=== PATIENT | female | born 1930 | race Caucasian/White ===

== ENCOUNTER 2017-09-19 07:30 | Inpatient (IN) ==
[~2017-09-19 07:30] MED LIST: ACETAMINOPHEN 500 MG TABLET PO ONE; DEXAMETHASONE 4 MG/ML INJECTION IVP ONE; FAMOTIDINE PB 20 MG/50 ML BAG IV ONE; LIDOCAINE 1% (10mg/ml) 2mL INJ PF SDV ID ONE; METOCLOPRAMIDE 10mg/2ml INJECTION IVP ONE; ONDANSETRON 4 MG/2 ML INJECTION IVP ONE; VANCOMYCIN 1,250 MG in NS 500ml 500 ML IV ONE
[2017-09-19] MEDS ORDERED: EPINEPHrine PF 0.25 MG, BUPIVACAINE 0.25% PF 30 ML, KETOROLAC INJ 60 MG in NS 30 ML OPSITE ONE (08:00)
--- OUTSIDE RECORDS SUMMARY | 2017-09-19 08:13 | External Medical Summary | Referral Summary ---
:1930 Author Organization [facility] Address [address] [place] [address] Care Team Providers Name Role Phone Geraldine Narvaez Primary Care Physician Encounter VC Date(s): 01/02/17 - 01/02/17 [facility] [address] [place] [address] - us Discharge Diagnosis: Chronic pain of right knee Discharge Disposition: 01-Home or Self Care Attending Physician: Lucas Hutchins PA-C Attending Physician: Provider, Immediate Care Admitting Physician: Provider, Immediate Care Vital Signs Most recent to oldest [Reference Range]: 1 Temperature Oral [35.8-37.3 degC] 36.4 degC (01/02/17 9:45 AM) Peripheral Pulse Rate [60-100 bpm] 71 bpm (01/02/17 9:45 AM) Blood Pressure [90-140/60-90 mmHg] 122/58 mmHg (01/02/17 9:45 AM) SpO2 96 % (01/02/17 9:45 AM) Problem List Condition Effective Dates Status Health Status Informant Acquired spondylolisthesis Active (disorder)(Confirmed) Allergy(Confirmed) Active Anemia(Confirmed) Active Ankle edema(Confirmed) Active Skin cancer of nose(Confirmed) Active Cataracts, bilateral(Confirmed) Active Bladder problem(Confirmed) Active Bronchitis(Confirmed) Active Sleep related hypoxia(Confirmed) Active Spondylosis of cervical Active joint(Confirmed) Chronic anemia(Confirmed) Resolved Chronic kidney disease (CKD), stage Active III (moderate)(Confirmed) Chronic pain syndrome Active (disorder)(Confirmed) Degeneration of cervical Active intervertebral disc (disorder)(Confirmed) Generalized Active osteoarthritis(Confirmed) Diverticulitis(Confirmed) 1972 Resolved Dry eyes(Confirmed) Active GERD (gastroesophageal reflux Active disease)(Confirmed) Glaucoma(Confirmed) Active Goiter(Confirmed) Active H/O chronic bronchitis(Confirmed) Active History of chicken pox(Confirmed) Active History of shingles(Confirmed) Resolved Hearing loss(Confirmed) Active Hyperlipidemia(Confirmed) Active Hypertension(Confirmed) Active Adult onset Active hypothyroidism(Confirmed) IBS (irritable bowel Active syndrome)(Confirmed) IBS (irritable bowel Active syndrome)(Confirmed) Chronic pain of right Active knee(Confirmed) Low back pain(Confirmed) Active Neck pain (finding)(Confirmed) Active BRYNN (obstructive sleep Active apnea)(Confirmed) Osteoporosis(Confirmed) Resolved Pes anserinus bursitis of right Active knee(Confirmed) Post-laminectomy syndrome Active (disorder)(Confirmed) Primary open angle glaucoma Active (disorder)(Confirmed) Lumbar disc herniation(Confirmed) Active RA:40, Anti CCP Negative(Confirmed) Resolved Recurrent sinus Active infections(Confirmed) Rheumatoid lung(Confirmed) Active Scoliosis(Confirmed) Active Seasonal allergies(Confirmed) Active Shoulder joint pain Active (finding)(Confirmed) Snoring(Confirmed) Active Lumbar spinal stenosis(Confirmed) Active Hives(Confirmed) Active Venous stasis ulcer of lower Active extremity(Confirmed) Allergies, Adverse Reactions, Alerts Substance Reaction Severity Status azithromycin Hives Active bacitracin hives Active clindamycin hives Active guaiFENesin hives Active HYDROcodone Active naproxen Hives Active pseudoephedrine hives Active Tape Active Medications 7 day joint smoother/glucosamine/chondroitan 7 day joint smoother/glucosamine/chondroitan, 0 Refill(s) Start Date: 08/12/14 Status: OrderedAdvair Diskus 100 mcg-50 mcg inhalation powder 1 puffs, Inhalation, BID, # 3 Each, 3 Refill(s), Pharmacy: [facility] Start Date: 05/07/15 Status: OrderedamLODIPine 5 mg oral tablet See Instructions, TAKE 2 TABLETS DAILY, # 180 tabs, 2 Refill(s), Pharmacy: [facility], TAKE 2 TABLETS DAILY Start Date: 07/12/16 Status: Orderedbenazepril 20 mg oral tablet See Instructions, TAKE 1 TABLET DAILY, # 90 tabs, 1 Refill(s), eRx: [facility] Start Date: 09/27/16 Status: Orderedcalcium-vitamin D 500 mg-200 intl units oral tablet tabs, Oral, BID, 0 Refill(s) Start Date: 02/07/14 Status: Orderedcarisoprodol Oral, QID, 0 Refill(s) Start Date: 01/02/17 Status: OrderedDuoNeb 0.5 mg-2.5 mg/3 mL inhalation solution See Instructions, INHALE ONE MILLILITER BY MOUTH TWICE A DAY, # 270 unknown unit , 3 Refill(s), eRx: [facility] #[id number], INHALE ONE MILLILITER BY MOUTH TWICE A DAY Start Date: 08/12/14 Status: Orderedfolic acid 1 mg oral tablet See Instructions, TAKE 2 TABLETS TWICE A DAY, # 360 tabs, 3 Refill(s), eRx: [facility] Start Date: 09/12/16 Status: OrderedhydroCHLOROthiazide 25 mg oral tablet 25 mg 1 tabs, Oral, Daily, # 30 tabs, 0 Refill(s), Pharmacy: [facility] # [id number], 1 tabs Oral Daily Start Date: 10/28/16 Status: Orderedleucovorin 5 mg oral tablet See Instructions, 1 tab 24 hrs after Methotrexate dose, # 13 tabs, 0 Refill(s), Pharmacy: [facility] #[id number], 1 tab 24 hrs after Methotrexate dose Start Date: 10/05/16 Status: Orderedlevothyroxine 100 mcg (0.1 mg) oral tablet 100 mcg 1 tabs, Oral, Daily, # 90 tabs, 0 Refill(s), Pharmacy: [facility] #[id number], 1 tabs OralDaily Start Date: 10/28/16 Status: Orderedmagnesium oxide 400 mg (241.3 mg elemental magnesium) oral tablet tabs, Oral, Daily, 0 Refill(s) Start Date: 02/07/14 Status: Orderedmethotrexate 2.5 mg oral tablet See Instructions, TAKE 6 TABLETS EVERY WEEK ON MONDAY, # 78 tabs, eRx: [facility] Start Date: 11/15/16 Status: OrderedMiscellaneous DME DME Item Front-wheeled walker Lifetime Fax to [facility] , See Instructions, # 1 Each, 0 Refill(s), Supply Start Date: 09/08/16 Status: Orderedmultivitamin Daily, 0 Refill(s) Start Date: 02/07/14 Status: Orderedomega-3 polyunsaturated fatty acids oral capsule 1 caps, Oral, QID, # 100 caps, 0 Refill(s) Start Date: 02/07/14 Status: Orderedomeprazole 40 mg oral delayed release capsule See Instructions, TAKE 1 CAPSULE BY MOUTH EVERY DAY BEFORE A MEAL, # 90 caps, eRx: [facility], TAKE 1 CAPSULE BY MOUTH EVERY DAY BEFORE A MEAL Start Date: 12/26/16 Status: OrderedOMEPRAZOLE CAPS 40MG See Instructions, TAKE 1 CAPSULE BY MOUTH EVERY DAY BEFORE A MEAL, # 90 caps, eRx: [facility], TAKE 1 CAPSULE BY MOUTH EVERY DAY BEFORE A MEAL Start Date: 09/27/16 Status: OrderedOMEPRAZOLE CAPS 40MG See Instructions, TAKE 1 CAPSULE BY MOUTH EVERY DAY BEFORE A MEAL, # 90 caps, eRx: [facility], TAKE 1 CAPSULE BY MOUTH EVERY DAY BEFORE A MEAL Start Date: 07/01/16 Status: OrderedProventil HFA 90 mcg/inh inhalation aerosol See Instructions, INHALE 2 PUFF BY INHALATION ROUTE EVERY 4 TO 6 HOURS NEEDED , # 6.7 unknown unit, 5 Refill(s), eRx: [facility] #[id number], INHALE 2 PUFF BY INHALATION ROUTE EVERY 4 TO 6 HOURS ASNEEDED Start Date: 12/12/14 Status: OrderedRefresh drops, Eye-Both, BID, 0 Refill(s) Start Date: 02/07/14 Status: OrderedSoma 250 mg oral tablet 250 mg 1 tabs, Oral, TID, as needed for pain, # 30 tabs, 0 Refill(s) Start Date: 04/06/16 Status: OrderedTimoptic Ocudose 0.25% ophthalmic solution 1 drops, Eye-Both, BID, # 5 mL, 1 Refill(s), Pharmacy: [facility] Start Date: 09/08/16 Status: OrderedtraMADol 50 mg oral tablet 50 mg 1 tabs, Oral, q4hr, as needed for pain, # 15 tabs, 0 Refill(s) Start Date: 01/02/17 Status: OrderedTylenol Caplet 325 mg oral tablet 2 tabs, Oral, q4hr, 0 Refill(s) Start Date: 02/07/14 Status: OrderedVitamin D3 2000 intl units oral tablet tabs, Oral, Daily, 0 Refill(s) Start Date: 02/07/14 Status: OrderedVoltaren 1% topical gel See Instructions, APPLY 2 GRAMS TOPICALLY TO THE AFFECTED AREA(S) FOUR TIMES A DAY, # 300 g, 4 Refill(s), eRx: [facility], APPLY 2 GRAMS TOPICALLY TO THE AFFECTED AREA(S) FOUR TIMES A DAY Start Date: 12/30/15 Status: Ordered Results No data available for this section Immunizations Given and Recorded Vaccine Date Status Refusal Reason tetanus/diphth/pertuss (Tdap) adult/adol 10/16/09 Recorded influenza virus vaccine, inactivated 04/07/16 Given influenza virus vaccine, inactivated 05/25/15 Given influenza virus vaccine, inactivated1 05/06/14 Recorded influenza virus vaccine, live 03/21/13 Given influenza virus vaccine, live 04/04/12 Given pneumococcal 13-valent conjugate vaccine 03/04/15 Given pneumococcal 23-polyvalent vaccine 03/27/07 Recorded pneumococcal 23-polyvalent vaccine 04/22/96 Recorded 1Result Comment: [05/06/2014] see scanned document Procedures Procedure Date Related Diagnosis Body Site Bone densimetry normal 09/24/14 Knee replacement 2012 Mammogram 07/28/09 Angioplasty of anterior tibial artery1 2009 Angioplasty of anterior tibial artery2 2009 Knee replacement3 2008 Vaginal Pap smear 04/30/08 Knee replacement4 2005 Colonoscopy 01/13/03 Cataract extraction5 2000 Arthroscopy of knee6 1999 Cataract extraction7 1999 History of back surgery 1999 Status post hardware removal8 1994 Decompression of lumbar spine9 1991 Varicose vein stripping 1961 Procedure on thyroid gland10 1960 Rndsotbnutosbrr88 1957 H/O [id number] 1951 Arthrotomy of elbow13 Biopsy of skin14 Blood transfusion Opggbyuwfkyl23 Dilation and curettage Hx of tubal ligation [id number] jeri [id number] [id number] [id number] foot Social History Social History Type Response Smoking Status Never smoker Assessment and Plan Extracted from: Title: Office Visit Note Author: Lucas Hutchins PA-C Date: 01/02/17 Assessment/Plan 1.Chronic pain of right knee No evidence of DVT or cellulitis. Pt given rx for Tramadol, advised to RICE right knee, provided with an ELIECER wrap. Pt has an ortho appt in x4 days. Diagnosis and treatment discussed. Patient advise d to follow up with ortho in 4 days as scheduled. If symptoms worsen at any time, patient will go to the nearest ER for further evaluation. Patient stable upon discharge, alert and orientated with no ap parent distress, and indicated understanding of discharge instructions. Ordered: Office Visit Level 3 Est [id number]
[2017-09-19 08:27] VITALS: BMI 34.9
[2017-09-19] MEDS: NS 1,000 ML IV SCH ×3 (08:47→13:41)
[2017-09-19] MEDS: NOZIN NASAL SWAB NAS SCH ×4 (08:48→21:34)
--- NOTE | 2017-09-19 10:01 | Anesthesia Preoperative Report ---
Anesthesia Preoperative Record - Date and Time Date: 09/19/17 Preoperative Diagnosis: Rt EMMY M16.11 Proposed Procedure: Right EMMY Allergies/Adverse Reactions: Allergies Allergy/AdvReac Type Severity Reaction Status Date / Time adhesive tape Allergy Unknown Verified 09/19/17 08:26 azithromycin Allergy Unknown Hives Verified 09/19/17 08:26 bacitracin Allergy Unknown Hives Verified 09/19/17 08:26 clindamycin Allergy Unknown Hives Verified 09/19/17 08:26 guaifenesin Allergy Unknown Verified 09/19/17 08:26 hydrocodone Allergy Unknown Verified 09/19/17 08:26 morphine Allergy Unknown hallucinati Verified 09/19/17 08:26 ons naproxen Allergy Unknown Hives Verified 09/19/17 08:26 phenylephrine Allergy Unknown Hives Verified 09/19/17 08:26 [From AQUATAB D] phenylpropanolamine Allergy Unknown Verified 09/19/17 08:26 pseudoephedrine Allergy Unknown Verified 09/19/17 08:26 cyclobenzaprine AdvReac Intermediate SLURRED Verified 09/19/17 08:26 SPEECH TAPE Allergy Unknown Hives Uncoded 09/19/17 08:26 - Vital Signs Vital Signs: Temperature 97.7 F 09/19/17 08:26 Pulse Rate 70 09/19/17 08:28 Respiratory Rate 14 09/19/17 08:26 Blood Pressure 113/87 09/19/17 08:26 Pulse Oximetry 96 09/19/17 08:26 Height and Weight: Height 5 ft Weight 81.1 kg Body Mass Index 34.9 - Medications Inpatient Medications: Current Medications Sodium Chloride (Normal Saline) 1,000 mls @ 50 mls/hr IV .Q20H [facility] Last Admin: 09/19/17 08:47 Dose: 50 mls/hr Epinephrine HCl 0.25 mg/Bupivacaine HCl 30 ml/Ketorolac Tromethamine 60 mg/ Sodium Chloride 62.25 mls @ 1 mls/hr OPSITE INTRAOP ONE PRN Reason: Protocol Stop: 09/21/17 22:14 Isopropyl Alcohol (Nozin Nasal Swab) 1 each DANIEL Q1M RADHA Stop: 09/19/17 12:03 Last Admin: 09/19/17 08:49 Dose: 1 each Sodium Chloride (Iv Flush) 10 - 80 ml IV PRN PRN PRN Reason: Flushing Tranexamic Acid (Cyklokapron) 1,000 mg TOP INTRAOP ONE Stop: 09/19/17 11:53 Home Medications: Home Medications Medication Instructions Recorded Confirmed Type hydroCHLOROthiazide 25 mg PO DAILY #0 12/20/09 09/19/17 History [Hydrochlorothiazide] Omeprazole 40 mg PO DAILY #0 05/24/12 09/19/17 History Calcium Carbonate/Vitamin D3 2 tab PO DAILY #0 11/26/15 09/19/17 History [Calcium 600-Vit D3 200 Tablet] Levothyroxine Sodium 112 mcg PO ACB #0 11/26/15 09/19/17 History Timolol Maleate/Pf [Timoptic 0.5% 1 drop BOTH EYES BID #0 11/26/15 09/19/17 History Ocudose Drop] metHOTREXate sodium [Trexall] 45 mg PO WEEKLY #0 11/26/15 09/19/17 History Acetaminophen [Tylenol] 1,000 mg PO Q4-6HPRN PRN 08/16/17 08/28/17 History Amlodipine Besylate [Norvasc] 10 mg PO DAILY 08/16/17 09/19/17 History Benazepril [Lotensin] 20 mg PO DAILY 08/16/17 09/19/17 History Cholecalciferol (Vitamin D3) 2,000 unit PO DAILY 08/16/17 09/19/17 History [Vitamin D3] Diclofenac [Voltaren] 2 gm TP QID PRN 08/16/17 09/19/17 History Folic Acid [Folate] 2 mg PO BID 08/16/17 09/19/17 History Glucosamine/MSM/Chondroitin A 2 each PO DAILY 08/16/17 09/19/17 History [Triple Flex Caplet] Magnesium Oxide [Magnesium] 400 mg PO DAILY 08/16/17 09/19/17 History Multivit/Folic Acid/Vit K1 1 tab PO DAILY 08/16/17 09/19/17 History [One-A-Day Women's 50 Plus Tab] [place]-3 Fatty Acids [[place]-3] 2,000 mg PO DAILY 08/16/17 09/19/17 History Tramadol [Ultram] 50 mg PO Q6HR PRN 08/16/17 08/28/17 History cycloSPORINE [Restasis Multidose] 1 drops EACH EYE BID 08/16/17 09/19/17 History ergocalciferol (vitamin D2) 50,000 50,000 unit PO DAILY #2 cap 08/17/17 Rx unit capsule Is Patient on Beta Manolo?: No - Medical History Respiratory: Reports: Bronchitis (h/o), Pneumonia (about 2 years ago), Sleep Apnea (uses cpap), 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), Other ('rheumatoid lung' per h&p) DENIES: Asthma, Chronic Obstructive Pulmonary Disease (COPD), Dyspnea, Orthopnea, Pulmonary Embolism, Upper Respiratory Infection, Pulmonary Edema Cardiovascular: Reports: Hypertension DENIES: Abnormal EKG, Angina, Arrhythmia, Congestive Heart Failure, Coronary Artery Disease, Heart Murmur, Hypotension, High Cholesterol, Myocardial Infarction, Rheumatic Fever, Valvular Heart Disease, Other Gastrointestional: Reports: Gastroesophageal Reflux Disease, Other (hx diverticulitis) DENIES: Obstructive Bowel, Hepatitis, Cirrhosis, Nausea or Vomiting Present, Gastrointestinal Bleeding, Hiatal Hernia, Ulcer, Morbid Obesity Neuro/Musculoskeletal: Reports: HX.MS.OSAR, Back Problems (acquired spondylolithiasis; spinal stenosis; cervical spondylolithiasis), Depression ( hip pain is making her depressed), Other (osteoporosis; RA) Denies: Cerebrovascular Accident, Headaches, Loss of Consciousness, Muscle Weakness, Neuromuscular Disorder, Paralysis, Paresthesia, Syncope, Seizures Renal/Endocrine: Reports: Thyroid Disease (adult onset hypothyroidism) DENIES: Diabetes Mellitus Type 1, Diabetes Mellitus Type 2, Renal Failure, Dialysis, Weight Loss, Weight Gain, Other Other History: Reports: Anesthesia Reactions (hard to wake up), Blood Transfusions (no known reactions), Cancer (skin CA's on face removed) DENIES: Now, Chemotherapy, Hemophilia, Malignant Hyperthermia, Sickle Cell Disease, Other - Surgical History HEENT Surgeries: Reports: Eye Surgery (case cataract ext with IOL) Cardiac Surgeries/Treatments: Reports: Angiogram (angioplasty of anterior tibial artery x2), Other (varicose vein stripping 1961) Respiratory Surgery/Treatments: Reports: CPAP Use Endocrine Surgery/Treatments: Reports: Other (goiter surgery x3-? thyroidectomy) GI Surgery/Treatments: Reports: Appendectomy, Cholecystectomy, Colonoscopy Musculoskeletal Surgery/Tx: Reports: Carpal Tunnel Release (left), Knee Arthroscopy, Orthopedic Surgery (case bunionectomy; elbow surgery; hammer toe surgery), Total Knee Replacement (left and right TKA's), Other (lumbar fusion; lower back surgery w/ hardware; hardware removed) Reproductive Surgery/Treatment: Reports: Tubal Ligation Anesthesia Reactions: None - Social History Smoking Status: Never smoker Hx Chewing Tobacco Use: No Second Hand Exposure: No Substance Use Type: does not use Alcohol Intake: never Alcohol Intake Frequency: does not drink - Pertinent Findings Laboratory: CBC and BMP 09/19/17 08:37 09/19/17 08:37 BMP 09/19/17 08:37 Sodium 142 Potassium 4.2 Chloride 106 Carbon Dioxide 26 BUN 41.0 H Creatinine 0.9 Glucose 105 Calcium 9.6 Liver Function 09/19/17 Range/Units 08:37 Total Bilirubin 0.30 (0.20-1.30) MG/DL AST 28 (14-36) U/L ALT 22 (1-35) U/L Alkaline Phosphatase 46 (38-126) U/L Albumin 4.0 (3.5-5.0) g/dL EKG: Sinus Rhythm - Physical Exam Respiratory Exam: Present: lungs clear, bilateral breath sounds equal Cardiovascular Exam: Present: regular rate and rhythm, no murmur - Airway Assessment Mallampati Score: II TMD: 3 Fingerbreadths Neck Extension: poor Overall Assessment: may be difficult intubation - ASA ASA Score: 3 - Plan Anesthesia: General TIVA Regional/Trunk Block: Spinal - Discussion Discussion: Discussed risks/options/alternatives of anesthesia and questions answered. Patient consents. Nursing pain assessment noted. Attestation Statement: Prior to the delivery of any anesthetic medication, I examined the patient, developed the plan, obtained the patient's consent and discussed the risk and benefits of the procedure with the patient/guardian. - Additional Information Seen by Anesthesia: Yes
[2017-09-19] MEDS ORDERED: ANESTHESIA MIXTURE 50 ML IV ONE (10:15)
[2017-09-19] MEDS ORDERED: FentaNYL 250 MCG/5 ML INJECTION ONE (10:28)
[2017-09-19] MEDS ORDERED: MIDAZOLAM 2mg/2ml INJECTION ONE (10:28)
[2017-09-19] MEDS ORDERED: LIDOCAINE 2% (100mg/5mL) 5ml PF SDV ONE (10:28)
[2017-09-19] MEDS ORDERED: BUPIVACAINE 0.5% (5mg/ml) PF 30ml INJ SDV ONE (10:28)
[2017-09-19] MEDS ORDERED: VANCOMYCIN 1,000 MG INJECTION ONE (10:36)
[2017-09-19] MEDS ORDERED: EPHEDRINE 50mg/ml INJECTION ONE (11:11)
[2017-09-19] MEDS ORDERED: SALINE FLUSH 10ml SYRINGE ONE (11:13)
[2017-09-19] MEDS ORDERED: VANCOMYCIN 1,000 MG INJECTION IAR ONE (11:15)
[2017-09-19] MEDS ORDERED: TRANEXAMIC ACID 1,000 MG/10 ML VIAL TOP ONE (11:52)
[2017-09-19] MEDS ORDERED: SALINE FLUSH 10ml SYRINGE IV PRN (11:52)
[2017-09-19] MEDS ORDERED: ONDANSETRON 4 MG/2 ML INJECTION IVP PRN (12:20)
[2017-09-19] MEDS ORDERED: VANCOMYCIN 1,250 MG in NS 500ml 500 ML IV ONE (12:20)
[2017-09-19] MEDS ORDERED: NOZIN NASAL SWAB NAS ONE (12:20)
[2017-09-19] MEDS ORDERED: DiphenhydrAMINE 50 MG/ML INJECTION IVP PRN (12:20)
[2017-09-19] MEDS ORDERED: DiphenhydrAMINE 25 MG CAPSULE PO PRN (12:20)
[2017-09-19] MEDS ORDERED: LORazepam 1 MG TABLET PO PRN (12:20)
--- NOTE | 2017-09-19 12:27 | Operative Note ---
- Procedure Preoperative Diagnosis: Right hip primary degenerative joint disease Postoperative Diagnosis: Same as preoperative diagnosis. Surgeon: Ray Bridges MD Electrical Journeyman: Melvin Manley Complications: Intraoperative periprosthetic fracture Anesthesia: Spinal. Estimated Blood Loss: See Anesthesia Record. Fluids: Please see Anesthesia Record. Description of Procedure: Mrs. Pyle and her right hip were identified and marked in the preoperative holding area. She was brought back to the operating suite and spinal anesthetic was administered. She was then placed in a lateral decubitus position with her right hip up. The right lower extremity was prepped and draped in my normal sterile fashion. Timeout was performed. She had severe valgus deformity to both femoral necks. Revision components were available if needed. The [employer] robotic arm was used to assist with the surgery. A pelvic array was placed into the iliac crest through three small incisions. A posterior approach was utilized. An approximately 15cm incision was made in the skin and dissection carried down to the muscle fascia which was then split in line with skin incision. The short external rotators were identified and tagged and detached. A capsulotomy was performed and the hip dislocated. A femoral neck osteotomy was performed at the pre-templated level measuring down from the femoral head. The head was removed and acetabulum exposed. Labrum was removed. The acetabulum was then registered with the robot. The robotic arm was then used to ream with a 47 reamer. The robot then was again used to place a 48 Trident cup in 40 of tilt and 25 of anteversion. A liner was then placed. The proximal femur was exposed and prepared with a cookie cutter followed by reaming and broaching to a size 3. We trialed with a -5 head. This gave her very good stability she was not too tight in extension and she was just 3 mm longer than her opposite hip according to the robot. Because of her severe valgus neck and therefore high risk of prosthetic fracture I decided to place a cable proximally at the femoral neck. This was passed and then tightened. It was left uncrimped. After thorough irrigation a final Accolade 2 size 3 stem with 132 neck was placed. While impacting the stem and fracture occurred to the medial calcar. Again because a cable was replaced there was no displacement. I was able to feel with my finger how far the fracture propagated but did not feel like there is any displacement distally. I then decided place a second cable distal to the lesser trochanter and this was done. Both cables were tightened and crimped. I did bring in digital x-ray to ensure there was no displacement of the fracture site and at the cables had good placement. Leg length and offset were checked with the robot and were good with a -5 head. Then placed the final A final -5 metal 36 mm head was placed and the hip reduced. Betadine solution was used to irrigate throughout the case. It was followed by normal saline irrigation. Joint cocktail was injected throughout soft tissue. The capsulotomy was repaired with Ethibond. Short external rotators were also repaired with Ethibond. 1 g of vancomycin powder was placed into the wound. The muscle fascia was then repaired with #1 Vicryl. I then left my assistant athletic trainer to close the subcutaneous tissue with 2-0 Vicryl followed by running 4-0 Monocryl skin followed by Dermabond and a sterile dressing. The patient with any placed back into supine position and taken to recovery room in the care of anesthesia.
--- NOTE | 2017-09-19 13:11 | XRay Report ---
Indication: INTRA OP PROCEDURE: XR pelvis 1-2V: Encounter: Initial Comparison: September 19, 2017 Findings/ Impression: Intraoperative view of the pelvis shows a right total hip prosthesis in a stage of placement. Two cerclage wires are noted in the proximal femur with expected postoperative subcutaneous gas. Three threaded screws are seen projecting over the right iliac bone with a metallic bar projecting over the central pelvis. No radiopaque sponges identified. .
--- NOTE | 2017-09-19 13:29 | Anesthesia Postoperative Note ---
- Date and Time Date: 09/19/17 Time: 13:28 - Status Patient Participated in Evaluation: Patient Participated in Person Vital Signs: Temperature 96.8 F 09/19/17 13:24 Pulse Rate 71 09/19/17 13:20 Respiratory Rate 18 09/19/17 13:20 Blood Pressure 124/61 09/19/17 13:20 Pulse Oximetry 94 09/19/17 13:20 Respiratory Function: Airway Patent, Regular Respirations Cardiovascular Function: Regular Pulse EKG: Sinus Rhythm Mental Status: Alert and Oriented Pain Intensity: 0 Hydration: IV Infusing Complications During Recover: None Apparent - Follow-Up Instructions Instructions: Per Surgeon
--- NOTE | 2017-09-19 13:37 | XRay Report ---
Indication: postoperative image PROCEDURE: XR pelvis w/ 1 view RT hip: Encounter: Initial Comparison: December 20, 2009 Findings: Postoperative changes of right total hip replacement are seen. There is expected postoperative subcutaneous gas. No evidence of hardware failure or acute fracture. No retained radiopaque surgical instruments or sponges seen. Two cerclage wires in the femur. Impression: New right total hip prosthesis without evidence of immediate complication. .
[2017-09-19] MEDS: ACETAMINOPHEN 325 MG TABLET PO SCH ×3 (13:45→21:33)
[2017-09-19] MEDS ORDERED: FALL RISK - PHARMACY CONSULT XX ONE (14:20)
[2017-09-19] MEDS: TRAMADOL 50 MG TABLET PO PRN (17:19)
[2017-09-19] MEDS ORDERED: NS IV ONE (20:00)
[2017-09-19] MEDS ORDERED: VANCOMYCIN IV ONE (20:00)
[2017-09-19] MEDS: ASPIRIN *EC* 81 MG TABLET PO SCH (21:33)
[2017-09-19] MEDS: TIMOLOL 0.5% EYE DROPS 5 ML EACH EYE SCH (21:33)
[2017-09-19] MEDS: SENNOSIDES 8.6 MG TABLET PO SCH (21:33)
[2017-09-19] MEDS: DOCUSATE SODIUM 100 MG CAPSULE PO SCH (21:34)
[2017-09-20] MEDS: NS 1,000 ML IV SCH (02:48)
[2017-09-20] MEDS: LEVOTHYROXINE 112 MCG TABLET PO SCH (06:08)
[2017-09-20] MEDS: OMEPRAZOLE 20 MG CAPSULE PO SCH (06:08)
[2017-09-20] MEDS: NOZIN NASAL SWAB NAS SCH ×4 (06:08→21:34)
--- NOTE | 2017-09-20 09:01 | Orthopedic Progress Note ---
Date: Date: 09/20/17 Time: 857 Subjective/Severity of Illness: Pt is doing okay this AM. Moderate pain but well tolerated. No CP, cough or SOA. She has been ambulatory with good tolerance. Hgb dropped from 10.7 to 7.8 but she is not symptomatic with this. She has not had much of an appetite but feels a little better this AM. No other concerns or problems at this time. Orthopedic Exam Vital signs: Temperature 96.5 F L 09/20/17 07:07 Pulse Rate 83 09/20/17 07:07 Respiratory Rate 16 09/20/17 07:07 Blood Pressure 138/62 09/20/17 07:07 Pulse Oximetry 99 09/20/17 07:07 - Constitutional General Appearance: Present: alert, cooperative, no acute distress, well developed, well nourished - Respiratory Exam Present: CTA bilaterally, non-labored - Cardiovascular Exam Present: Regular Rate/Rhythm, pedal pulses intact - Abdominal Exam Present: soft. Absent: tenderness, distended - Extremities Exam Present: pulses intact. Absent: calf tenderness - Dressing Dressing: dry, intact, no drainage, other (Erythema noted around the dressing. Dressing is dry.) - Integumentary Exam Present: pink, warm, dry - Neurological Exam Present: no deficits - Psychiatric Exam Present: alert, normal affect - Labs Result Diagrams: 09/20/17 04:03 09/20/17 04:03 Abnormal lab results 09/20/17 09/20/17 Range/Units 04:03 04:03 Hgb 7.8 L D (12-16) GM/DL Hct 23.5 L D (36-46) % Chloride 110 H (98-107) MEQ/L BUN 31.0 H (7-17) MG/DL BUN/Creatinine Ratio 34 H (6-26) RATIO H & H 09/19/17 09/20/17 Range/Units 08:37 04:03 Hgb 10.7 L 7.8 L D (12-16) GM/DL Hct 32.4 L 23.5 L D (36-46) % Orthopedic Assessment and Plan (1) Primary osteoarthritis of right hip Status: Acute Assessment and Plan: Current anti-coagulation protocol for VTE prophylaxis. SCD's for added coverage. PT/OT services to improve independent function. Recheck labs at noon. Discharge Planning per Case Management. (2) CKD (chronic kidney disease) Status: Acute Qualifiers: Chronic kidney disease stage: stage 3 (moderate) Qualified Code(s): N18.3 - Chronic kidney disease, stage 3 (moderate) Assessment and Plan: Currently stable with GFR 59 and creat stable. Diastolic pressures 50-60. Will monitor closely. Check hgb at noon to watch trends. No transfusion at this time unless symptomatic when up with PT. - Anticoagulation Therapy Anticoagulation: ASA 81 mg PO BID x6 weeks Hospital Course Summary Disclaimer: The visit summary below is not to be considered part of the above Progress Note.
[2017-09-20] MEDS: ACETAMINOPHEN 325 MG TABLET PO SCH ×4 (09:59→20:24)
[2017-09-20] MEDS: ASPIRIN *EC* 81 MG TABLET PO SCH ×2 (09:59→20:23)
[2017-09-20] MEDS: BENAZEPRIL 20 MG TABLET PO SCH (10:00)
[2017-09-20] MEDS: POLYETHYL GLYCOL 3350 17gm PACKET PO SCH (10:00)
[2017-09-20] MEDS: TIMOLOL 0.5% EYE DROPS 5 ML EACH EYE SCH ×2 (10:00→20:25)
[2017-09-20] MEDS: AMLODIPINE 10 MG TABLET PO SCH (10:00)
[2017-09-20] MEDS: DOCUSATE SODIUM 100 MG CAPSULE PO SCH ×2 (10:00→20:23)
[2017-09-20] MEDS: TRAMADOL 50 MG TABLET PO PRN ×2 (10:06→18:06)
[2017-09-20] MEDS ORDERED: SENNOSIDES 8.6 MG TABLET PO PRN (12:20)
[2017-09-20] MEDS ORDERED: NS FLUSH BAG 500ml IV PRN (12:36)
[2017-09-20] MEDS ORDERED: PNEUMOCOCCAL VAC ADMIN CHARGE INJ ONE (14:00)
[2017-09-20] MEDS ORDERED: PNEUMOCOCCAL 23 VACCINE 0.5ml INJECTION IM ONE (14:30)
[2017-09-20] MEDS ORDERED: FUROSEMIDE 20 MG/2 ML INJECTION IVP ONE (17:00)
[2017-09-20] MEDS: SENNOSIDES 8.6 MG TABLET PO SCH (20:23)
[2017-09-21] MEDS: NOZIN NASAL SWAB NAS SCH ×5 (05:45→21:01)
[2017-09-21] MEDS: LEVOTHYROXINE 112 MCG TABLET PO SCH (05:45)
[2017-09-21] MEDS: OMEPRAZOLE 20 MG CAPSULE PO SCH (05:45)
[2017-09-21] MEDS: BENAZEPRIL 20 MG TABLET PO SCH (08:46)
[2017-09-21] MEDS: ASPIRIN *EC* 81 MG TABLET PO SCH ×2 (08:46→20:34)
[2017-09-21] MEDS: POLYETHYL GLYCOL 3350 17gm PACKET PO SCH (08:46)
[2017-09-21] MEDS: ACETAMINOPHEN 325 MG TABLET PO SCH ×4 (08:46→20:34)
[2017-09-21] MEDS: TRAMADOL 50 MG TABLET PO PRN ×2 (08:47→14:56)
[2017-09-21] MEDS: AMLODIPINE 10 MG TABLET PO SCH (08:47)
[2017-09-21] MEDS: DOCUSATE SODIUM 100 MG CAPSULE PO SCH ×2 (08:47→20:34)
[2017-09-21] MEDS: TIMOLOL 0.5% EYE DROPS 5 ML EACH EYE SCH ×2 (08:48→20:34)
--- NOTE | 2017-09-21 09:01 | Orthopedic Progress Note ---
Date: Date: 09/21/17 Time: 856 Subjective/Severity of Illness: Kassandra is lying in her bed this morning when I visit. She did well overnight with pain control. Was up ambulating this morning and states she felt stiff. Yesterday Hgb 7.4, she was transfused with 2 units PRBC. Hgb improved to 10.8 this morning. Denies any further dizziness. No chest pain, shortness of breathe, or nausea. Orthopedic Exam Vital signs: Temperature 96.5 F L 09/20/17 07:07 Pulse Rate 83 09/20/17 07:07 Respiratory Rate 16 09/20/17 07:07 Blood Pressure 138/62 09/20/17 07:07 Pulse Oximetry 99 09/20/17 07:07 - Constitutional General Appearance: Present: alert, cooperative, no acute distress, well developed, well nourished - Respiratory Exam Present: non-labored - Cardiovascular Exam Present: pedal pulses intact - Extremities Exam Present: pulses intact. Absent: calf tenderness - Dressing Dressing: dry, intact, other (bruising noted around surgical site. Bloody drainage present centrally on dressing, stable from yesterday. ) - Integumentary Exam Present: pink, warm, dry - Neurological Exam Present: intact to light touch, no deficits - Psychiatric Exam Present: alert, normal affect - Labs Result Diagrams: 09/21/17 03:52 09/21/17 03:52 Abnormal lab results 09/20/17 09/20/17 09/20/17 Range/Units 11:37 12:51 21:37 RBC 2.13 L (4.00-5.20) M/MM3 Hgb 7.4 L 11.2 L D (12-16) GM/DL Hct 22.7 L (36-46) % MCV 106.6 H (80-100) UM3 MCH 347.0 H (26-34) UUG RDW Std Deviation 51.4 H (36.9-50.2) FL BUN (7-17) MG/DL BUN/Creatinine Ratio (6-26) RATIO Crossmatch (AHG) See Detail 09/21/17 09/21/17 Range/Units 03:52 03:52 RBC (4.00-5.20) M/MM3 Hgb 10.8 L (12-16) GM/DL Hct 31.8 L D (36-46) % MCV (80-100) UM3 MCH (26-34) UUG RDW Std Deviation (36.9-50.2) FL BUN 27.0 H (7-17) MG/DL BUN/Creatinine Ratio 27 H (6-26) RATIO Crossmatch (AHG) H & H 09/19/17 09/20/17 09/20/17 Range/Units 08:37 04:03 11:37 Hgb 10.7 L 7.8 L D 7.4 L (12-16) GM/DL Hct 32.4 L 23.5 L D 22.7 L (36-46) % 09/20/17 09/21/17 Range/Units 21:37 03:52 Hgb 11.2 L D 10.8 L (12-16) GM/DL Hct 31.8 L D (36-46) % Orthopedic Assessment and Plan (1) CKD (chronic kidney disease) Status: Acute Qualifiers: Chronic kidney disease stage: stage 3 (moderate) Qualified Code(s): N18.3 - Chronic kidney disease, stage 3 (moderate) Assessment and Plan: 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 SCD's for added coverage. PT/OT services to improve independent function. Hgb improved this morning at 10.8. Patient asymptomatic. Bruising along right hip surgical incision stable, drainage unchanged on dressing. Will continue to monitor closely. Patient has been accepted to IRU, plan transfer Monday. Discharge Planning per Case Management. When revisiting patient with Dr. Bridges this afternoon, patient reports increased pain with ambulation. Will obtain xrays of right hip. - Anticoagulation Therapy Anticoagulation: ASA 81 mg PO BID x6 weeks Hospital Course Summary Disclaimer: The visit summary below is not to be considered part of the above Progress Note.
--- NOTE | 2017-09-21 15:55 | XRay Report ---
Indication: INCREASE IN PAIN PROCEDURE: XR pelvis w/ 2 view RT hip: Encounter: Initial Comparison: September 19, 2017 Findings: There is no acute fracture, dislocation or malalignment identified. Hip prosthesis is stable in appearance. Impression: No acute osseous abnormality. .
[2017-09-21] MEDS ORDERED: BISACODYL 10 MG SUPPOSITORY RECTALLY SCH (20:00)
[2017-09-21] MEDS: SENNOSIDES 8.6 MG TABLET PO SCH (20:34)
[2017-09-22] MEDS: TRAMADOL 50 MG TABLET PO PRN ×2 (05:07→11:31)
[2017-09-22] MEDS: NOZIN NASAL SWAB NAS SCH (05:07)
[2017-09-22] MEDS: OMEPRAZOLE 20 MG CAPSULE PO SCH (05:32)
[2017-09-22] MEDS: LEVOTHYROXINE 112 MCG TABLET PO SCH (05:32)
[2017-09-22] MEDS: DOCUSATE SODIUM 100 MG CAPSULE PO SCH (08:52)
[2017-09-22] MEDS: BENAZEPRIL 20 MG TABLET PO SCH (08:52)
[2017-09-22] MEDS: ASPIRIN *EC* 81 MG TABLET PO SCH (08:52)
[2017-09-22] MEDS: ACETAMINOPHEN 325 MG TABLET PO SCH (08:52)
[2017-09-22] MEDS: TIMOLOL 0.5% EYE DROPS 5 ML EACH EYE SCH (08:52)
[2017-09-22] MEDS: POLYETHYL GLYCOL 3350 17gm PACKET PO SCH (08:52)
[2017-09-22] MEDS: AMLODIPINE 10 MG TABLET PO SCH (08:52)
--- NOTE | 2017-09-22 09:22 | Orthopedic Progress Note ---
Date: Date: 09/22/17 Time: 917 Subjective/Severity of Illness: Kassandra is sitting up in her chair this morning when I visit. She states she continues to have pain in her quad when ambulating. Has been controlled with pain medication. States she was declining pain medications with concerns of constipation. Discussed pain med and bowel promotion medication regimens. To take pain medications as need so able to perform therapy. Denies any other concerns, CP, SOA, dizziness, nausea. Tolerating PO well. Hgb remains stable this morning at 11.5. Orthopedic Exam Vital signs: Temperature 96.5 F L 09/20/17 07:07 Pulse Rate 83 09/20/17 07:07 Respiratory Rate 16 09/20/17 07:07 Blood Pressure 138/62 09/20/17 07:07 Pulse Oximetry 99 09/20/17 07:07 - Constitutional General Appearance: Present: alert, cooperative, no acute distress, well developed, well nourished - Respiratory Exam Present: CTA bilaterally, non-labored - Cardiovascular Exam Present: Regular Rate/Rhythm, pedal pulses intact - Extremities Exam Present: pulses intact. Absent: calf tenderness - Dressing Dressing: dry, intact, bloody drainage, other (bruising noted around surgical site. Bloody drainage present centrally on right hip mepilex dressing, stable from yesterday. ) - Integumentary Exam Present: pink, warm, dry - Neurological Exam Present: intact to light touch, no deficits - Psychiatric Exam Present: alert, normal affect - Labs Result Diagrams: 09/22/17 07:35 09/22/17 07:35 Abnormal lab results 09/22/17 09/22/17 Range/Units 07:35 07:35 Hgb 11.5 L (12-16) GM/DL Hct 33.8 L (36-46) % BUN 19.0 H (7-17) MG/DL Calculated Osmolality 260 L (261-280) MOSM/KG H & H 09/19/17 09/20/17 09/20/17 Range/Units 08:37 04:03 11:37 Hgb 10.7 L 7.8 L D 7.4 L (12-16) GM/DL Hct 32.4 L 23.5 L D 22.7 L (36-46) % 04/04/18 04/05/18 04/06/18 Range/Units 21:37 03:52 07:35 Hgb 11.2 L D 10.8 L 11.5 L (12-16) GM/DL Hct 31.8 L D 33.8 L (36-46) % Orthopedic Assessment and Plan (1) CKD (chronic kidney disease) Status: Acute Qualifiers: Chronic kidney disease stage: stage 3 (moderate) Qualified Code(s): N18.3 - Chronic kidney disease, stage 3 (moderate) Assessment and Plan: 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 SCD's for added coverage. PT/OT services to improve independent function. Hgb improved this morning at 10.8. Patient asymptomatic. Bruising along right hip surgical incision stable, drainage unchanged on dressing. Will continue to monitor closely. Patient has been accepted to IRU, plan transfer Monday. Discharge Planning per Case Management. When revisiting patient with Dr. Bridges this afternoon, patient reports increased pain with ambulation. Will obtain xrays of right hip. Hospital Course Summary Disclaimer: The visit summary below is not to be considered part of the above Progress Note. Hospital Course: Current anti-coagulation protocol with ASA 81mg BID x 6 weeks for VTE prophylaxis. SCD's for added protection. Hgb remains stable, received 2 units PRBC on 09/20. No further drainage noted on right hip surgical dressing, bruising around incision stable. PT/OT services to improve independent function. Anticipated discharge to IRU today. Discharge Planning per Case Management.
--- NOTE | 2017-09-22 11:43 | Discharge Summary ---
Orthopedic Discharge Info Date of admission: 09/19/17 07:53 Anticipated date of discharge: 09/22/17 Primary care physician: Geraldine Narvaez DO Attending Physician: Yang Bridges MD Consults: 09/19/17 IRU Screening [Inpatient Rehab Screening] [CONS] Routine 09/19/17 08:08 Consult to Anesthesiology [CONS] Routine Reason For Exam: Preoperative Assessment 09/19/17 12:20 Case Management Consult [CONS] Routine Reason For Exam: Discharge Planning DME-Walker [CONS] Routine Height: 5 ft Weight: 81.1 kg Comment: MUST USE walker for 8 weeks post op Total Joint Outpatient Therapy [CONS] Routine Comment: Remove dressing in 2 weeks 09/20/17 08:08 Physician Consult [CONS] Routine Consulting Provider: Emre Chaparro Reason For Exam: ICF Ordering Provider has 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 - Discharge Diagnosis (1) CKD (chronic kidney disease) Qualifiers: Chronic kidney disease stage: stage 3 (moderate) Qualified Code(s): N18.3 - Chronic kidney disease, stage 3 (moderate) Status: Acute (2) Primary osteoarthritis of right hip Status: Acute - Laboratory Result Diagrams: 09/22/17 07:35 09/22/17 07:35 Laboratory: Abnormal lab results 09/22/17 09/22/17 Range/Units 07:35 07:35 Hgb 11.5 L (12-16) GM/DL Hct 33.8 L (36-46) % BUN 19.0 H (7-17) MG/DL Calculated Osmolality 260 L (261-280) MOSM/KG H & H 09/19/17 09/20/17 09/20/17 Range/Units 08:37 04:03 11:37 Hgb 10.7 L 7.8 L D 7.4 L (12-16) GM/DL Hct 32.4 L 23.5 L D 22.7 L (36-46) % 09/20/17 09/21/17 09/22/17 Range/Units 21:37 03:52 07:35 Hgb 11.2 L D 10.8 L 11.5 L (12-16) GM/DL Hct 31.8 L D 33.8 L (36-46) % Orthopedic Discharge HPI - HPI Comments This patient was admitted for elective surgical tx of end stage degenerative joint disease that failed to respond to conservative treatment. Further details of this is found in the admission H&P. Orthopedic Hospital Course Hospital course: 09/22/17 11:37 After appropriate preoperative clearance and signing of operative consent, the patient was given IV antibiotics, according to orthopedic protocol. The patient was taken to the operating room and underwent elective right hip arthroplasty. Following surgery, antibiotics were discontinued less than 24 hours according to joint protocol. Appropriate anticoagulants were initiated and SCDs added for DVT prevention. The dressing was clean, dry, and intact. Pain control was obtained via multimodal approach. Bowel motivation addressed with scheduled and PRN medications. Early mobilization was initiated through PT services. Patient's hemoglobin 7.3 post op day 2, she received 2 units PRBC. Hgb improved to 11.7. 4/5, patient reported increased pain with ambulation, repeat xrays performed. Implants are in stable alignment. Discharge arrangements made by a collaborative effort between the patient and Case Management. Follow-up is scheduled in 2-3 weeks. Discharge instructions given by orthopedic providers and nursing staff at discharge. Discharged stable and in good condition. Care extended to > 2 midnight stays?: Yes Discharge Plan - Med Rec/Dispo Referrals/Follow Up: Yang Bridges MD [Physician] - 10/11/17 9:15 am [place] Instructions: MIC Ortho Postop Instructions Prescriptions: New Aspirin *EC* [Ecotrin] 81 mg PO BID tab DiphenhydrAMINE [Benadryl] 25 mg IVP Q6HR PRN vial PRN Reason: Itching Docusate Sodium [Colace] 100 mg PO BID cap LORazepam [Ativan] 1 mg PO HS PRN tab PRN Reason: Sleep Ondansetron Inj [Zofran] 4 mg IVP Q4H PRN vial PRN Reason: Nausea &/Or Vomiting PEG 3350 17gm PACKET [Miralax] 17 gm PO DAILY packet Saline Flush [IV Flush] 10 - 80 ml IV PRN PRN syringe PRN Reason: Flushing Sennosides [Senna Lax] 17.2 mg PO HS tab Tramadol [Ultram] 50 - 100 mg PO Q6H PRN tab PRN Reason: Pain Acetaminophen [Tylenol] 650 mg PO QID tab DiphenhydrAMINE [Benadryl] 25 mg PO Q6H PRN cap PRN Reason: Itching Sennosides [Senna Lax] 17.2 mg PO DAILY PRN tab PRN Reason: Constipation Continue hydroCHLOROthiazide [Hydrochlorothiazide] 25 mg PO DAILY #0 Omeprazole 40 mg PO DAILY #0 metHOTREXate sodium [Trexall] 45 mg PO WEEKLY #0 Levothyroxine Sodium 112 mcg PO ACB #0 Timolol Maleate/Pf [Timoptic 0.5% Ocudose Drop] 1 drop BOTH EYES BID #0 Benazepril [Lotensin] 20 mg PO DAILY Cholecalciferol (Vitamin D3) [Vitamin D3] 2,000 unit PO DAILY cycloSPORINE [Restasis Multidose] 1 drops EACH EYE BID Folic Acid [Folate] 2 mg PO BID Glucosamine/MSM/Chondroitin A [Triple Flex Caplet] 2 each PO DAILY Magnesium Oxide [Magnesium] 400 mg PO DAILY Multivit/Folic Acid/Vit K1 [One-A-Day Women's 50 Plus Tab] 1 tab PO DAILY [place]-3 Fatty Acids [[place]-3] 2,000 mg PO DAILY Tramadol [Ultram] 50 mg PO Q6HR PRN PRN Reason: Pain Diclofenac [Voltaren] 2 gm TP QID PRN PRN Reason: Pain Calcium Carbonate/Vitamin D3 [Calcium 600-Vit D3 200 Tablet] 2 tab PO DAILY # 0 Acetaminophen [Tylenol] 1,000 mg PO Q4-6HPRN PRN PRN Reason: Pain Amlodipine Besylate [Norvasc] 10 mg PO DAILY ergocalciferol (vitamin D2) 50,000 unit capsule 50,000 unit PO DAILY #2 cap - Disposition 62 To [facility] - Dismissal Complete Discharge Instructions are:: Complete
[2017-09-22 12:35] VITALS: BP 131/69; PULSE 70; RESP 14; TEMP 95.6; O2SAT 97
== END 2017-09-22 13:18 | DRG 470 ==
LOC: SRG 07:53
PROVIDERS: ADMIT Orthopaedic Surgery; ATTEND Orthopaedic Surgery

== ENCOUNTER 2017-09-22 12:09 | Inpatient (IN) ==
[2017-09-22] MEDS ORDERED: DiphenhydrAMINE 25 MG CAPSULE PO PRN (14:12)
[2017-09-22] MEDS ORDERED: FALL RISK - PHARMACY CONSULT MC ONE ×2 (14:12)
[2017-09-22] MEDS ORDERED: SENNOSIDES 8.6 MG TABLET PO PRN (14:12)
[2017-09-22 14:26] VITALS: BMI 35.5
[2017-09-22] MEDS: ACETAMINOPHEN 325 MG TABLET PO SCH ×2 (18:00→20:43)
--- NOTE | 2017-09-22 18:01 | IRU History & Physical Report ---
HPI IRU Date: Date: 09/22/17 Time: 1759 Chief complaint: My hip was fixed HPI: Ms. Pyle is a very pleasant 87-year-old female referred by Dr. Yang Bridges. Her primary care physician is Dr. Geraldine Narvaez. The patient states that she has had about a one-year history of increasing pain in the right hip. At this time she was admitted for an elective right total hip arthroplasty by Dr. Bridges on 08/2017. The patient did experience an intraoperative periprostatic fracture. The patient does have history of rheumatoid arthritis and has been on methotrexate for a number of years. She does see Dr. Natalia Og, a knitting tester in [place], about every six months in this regard. There was initially some redness noted at the incision site and the patient complained of discomfort in the hip. Repeat radiographs were obtained showing good placement of the prosthesis. No other development of infection was noted. She did have a blood loss from 10.8 down to a low of 7.4 g percent hemoglobin. She did receive 2 units of packed red blood cells while on acute care. The patient does have diffuse joint aching and discomfort. She has discomfort laterally in the hip but also in the knee in the hands and the shoulder. She apparently has fallen on numerous occasions according to the patient. She is currently not using the methotrexate as anticipated. The patient does have history of chronic kidney disease stage III. The patient lives in her own house with her son and daughter. She has 2 steps to get into the house. She normally does use a front-wheeled walker. We did discuss the issue of resuscitation. She initially stated she did not want CPR. Subsequently it was determined that she did not want to be placed on long-term mechanical ventilation but would allow short-term CPR. Prior level of function is as follows: She was independent for all activities except for lower body dressing which required minimum assistance. She was modified independent for bed/chair/wheelchair transfers, toilet transfers and walking with a rolling walker 550 feet. Current level of functioning is as follows: She has quite a bit of discomfort in the hip. She is independent for eating but requires supervision for grooming , minimum assistance for bathing and lower body dressing. She is modified independent for upper body dressing but requires moderate assistance for toileting, maximal assistance for bed/chair/wheelchair transfers, moderate assistance for toilet transfers but maximum assistance for walking with a rolling walker 70 feet. The following medical conditions are noted and require active monitoring and/or management: 1. s/p right total hip arthroplasty, elective 2. Rheumatoid arthritis with multiple joint pains 3. Acute blood loss anemia, (10.8 -->7.4), now s/p transfusion of 2 uPRBC's The following therapies will be needed: 1. Physical therapy: for transfers and ambulation and stairs. 2. Occupational therapy: for ADL's and transfers. 3. Medical management: for the above conditions. 4. 24 hour Rehabilitation Nursing to monitor and address the following: Wound care, pain assessment and management, observance for further blood loss. 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 Diabetes Mellitus Type 1 No Diabetes Mellitus Type 2 No Cirrhosis No Constipation Yes: occasional Gastrointestinal Bleeding No Hepatitis No Hiatal Hernia No Obstructive Bowel No Ulcer No Hx Incontinence Yes Hx Kidney Stones Yes Hx Renal Disease Yes: CKD 3 Hx Urinary Tract Infection Yes: frequent Osteoarthritis Yes Other Musculoskeletal Yes: osteoporosis; RA Other Infectious Yes: wound infection after appy, hyst, & trigger finger Anesthesia Reactions Yes: hard to wake up Blood Transfusions Yes: no known reactions Chemotherapy No Malignant Hyperthermia No Other No Depression Yes: hip pain is making her depressed Post Menopausal Yes Now No Clinic Medical History (Last Reviewed 08/28/17 @ 12:14 by Yang Bridges MD) Bronchitis (Chronic Medical) Cataracts, bilateral (Chronic Medical) GERD (gastroesophageal reflux disease) (Chronic Medical) Glaucoma (Chronic Medical) High blood pressure (Chronic Medical) Obstructive sleep apnea (Chronic Medical) Osteoporosis (Chronic Medical) Thyroid disease (Chronic Medical) Surgical History: Rt TKA. Thyroidectomy versus thyroid nodule removed. Bilateral total knee arthroplasties. "Back surgeries" 3. Skin cancer removed from nose. Cholecystectomy. Appendectomy. Tubal ligation Family History: Family History (Last Reviewed 08/28/17 @ 12:14 by Yang Bridges MD) Mother Aneurysm Arthritis High blood pressure Family History Updates: Father from motor vehicle accident wherein he was run over by a train with loss of his legs. Mother of cerebral aneurysm. - Social History Smoking status: Never smoker second hand exposure: No Substance use type: does not use Alcohol intake: never Alcohol intake frequency: does not drink Housing: house Household members: family Current occupational status: retired Does patient use chewing tobacco?: No Current residence: Apartment/Private Home Social history: Patient is retired. Her who is worked for the [employer] and also was in the for number of years. She lives in her own home with her son and daughter. Review of Systems - Constitutional Constitutional: Absent: anorexia, chills, fatigue, fever(s), headache(s), lethargy, malaise, night sweats, weakness, weight gain, weight loss - EENMT Eyes: Absent: blurry vision, change in vision, diplopia Mouth/Throat: Absent: changes in swallowing, painful swallowing, change in taste , bleeding gums, change in voice - Cardiovascular Cardiovascular: Absent: chest pain, palpitations, syncope, dyspnea on exertion, orthopnea, edema, cyanosis, heart murmur Rhythm: Present: regular rhythm Vascular: Absent: intermittent claudication, pedal edema, unilateral swelling - Respiratory Respiratory: Absent: cough, dyspnea, hemoptysis, dyspnea on exertion, wheezing, pain on inspiration, chest congestion, excessive phlegm production - Gastrointestinal Gastrointestinal: Present: diarrhea (occasional diarrhea). Absent: abdominal pain, change in bowel habits, constipation, dyspepsia, dysphagia, early satiety , hematochezia, melena, nausea, vomiting - Genitourinary Genitourinary: Present: urinary incontinence - Musculoskeletal Musculoskeletal: Absent: abnormal gait, arthralgias, back pain, joint swelling, limited range of motion, muscle weakness - Integumentary/Breasts Integumentary: Absent: alopecia, erythema, lesions, pruritus, rash, jaundice - Neurological Neurological: Present: frequent falls. Absent: abnormal gait, abnormal movements, abnormal speech, confusion, convulsions, dizziness, focal weakness, headache(s), loss of vision, memory loss, numbness, paresthesias, tremor(s) - Psychiatric Psychiatric: Absent: abnormal sleep pattern, anxiety, depression - Endocrine Endocrine: Absent: cold intolerance, flushing, heat intolerance, palpitations - Hematologic/Lymphatic Hematologic/Lymphatic: Absent: easy bleeding, easy bruising, lymphadenopathy - Allergic/Immunologic Allergic/Immunologic: Absent: urticaria Medications Home Medications Medication Instructions Recorded Confirmed Type hydroCHLOROthiazide 25 mg PO DAILY #0 12/20/09 09/22/17 History [Hydrochlorothiazide] Omeprazole 40 mg PO DAILY #0 05/24/12 09/22/17 History Calcium Carbonate/Vitamin D3 2 tab PO DAILY #0 11/26/15 09/22/17 History [Calcium 600-Vit D3 200 Tablet] Levothyroxine Sodium 112 mcg PO ACB #0 11/26/15 09/22/17 History Timolol Maleate/Pf [Timoptic 0.5% 1 drop BOTH EYES BID #0 11/26/15 09/22/17 History Ocudose Drop] Acetaminophen [Tylenol] 1,000 mg PO Q4-6HPRN PRN 08/16/17 09/22/17 History Amlodipine Besylate [Norvasc] 10 mg PO DAILY 08/16/17 09/22/17 History Benazepril [Lotensin] 20 mg PO DAILY 08/16/17 09/22/17 History Cholecalciferol (Vitamin D3) 2,000 unit PO DAILY 08/16/17 09/22/17 History [Vitamin D3] Diclofenac [Voltaren] 2 gm TP QID PRN 08/16/17 09/22/17 History Folic Acid [Folate] 2 mg PO BID 08/16/17 09/22/17 History Glucosamine/MSM/Chondroitin A 2 each PO DAILY 08/16/17 09/22/17 History [Triple Flex Caplet] Magnesium Oxide [Magnesium] 400 mg PO DAILY 08/16/17 09/22/17 History Multivit/Folic Acid/Vit K1 1 tab PO DAILY 08/16/17 09/22/17 History [One-A-Day Women's 50 Plus Tab] [place]-3 Fatty Acids [[place]-3] 2,000 mg PO DAILY 08/16/17 09/22/17 History Tramadol [Ultram] 50 mg PO Q6HR PRN 08/16/17 09/22/17 History cycloSPORINE [Restasis Multidose] 1 drops EACH EYE BID 08/16/17 09/22/17 History ergocalciferol (vitamin D2) 50,000 50,000 unit PO DAILY #2 cap 08/17/17 Rx unit capsule Acetaminophen [Tylenol] 650 mg PO QID tab 09/22/17 09/22/17 Rx Aspirin *EC* [Ecotrin] 81 mg PO BID tab 09/22/17 09/22/17 Rx DiphenhydrAMINE [Benadryl] 25 mg PO Q6H PRN cap 09/22/17 09/22/17 Rx Docusate Sodium [Colace] 100 mg PO BID cap 09/22/17 09/22/17 Rx LORazepam [Ativan] 1 mg PO HS PRN tab 09/22/17 09/22/17 Rx METHOTREXATE 2.5mg TAB 6 tab PO WEEKLY 09/22/17 09/22/17 History [Methotrexate] PEG 3350 17gm PACKET [Miralax] 17 gm PO DAILY packet 09/22/17 09/22/17 Rx Sennosides [Senna Lax] 17.2 mg PO DAILY PRN tab 09/22/17 09/22/17 Rx Sennosides [Senna Lax] 17.2 mg PO HS tab 09/22/17 09/22/17 Rx Tramadol [Ultram] 50 - 100 mg PO Q6H PRN tab 09/22/17 09/22/17 Rx Allergies Allergy/AdvReac Type Severity Reaction Status Date / Time adhesive tape Allergy Unknown Verified 09/19/17 08:26 azithromycin Allergy Unknown Hives Verified 09/19/17 08:26 bacitracin Allergy Unknown Hives Verified 09/19/17 08:26 clindamycin Allergy Unknown Hives Verified 09/19/17 08:26 guaifenesin Allergy Unknown Verified 09/19/17 08:26 hydrocodone Allergy Unknown Verified 09/19/17 08:26 morphine Allergy Unknown hallucinati Verified 09/19/17 08:26 ons naproxen Allergy Unknown Hives Verified 09/19/17 08:26 phenylephrine Allergy Unknown Hives Verified 09/19/17 08:26 [From AQUATAB D] phenylpropanolamine Allergy Unknown Verified 09/19/17 08:26 pseudoephedrine Allergy Unknown Verified 09/19/17 08:26 cyclobenzaprine AdvReac Intermediate SLURRED Verified 09/19/17 08:26 SPEECH TAPE Allergy Unknown Hives Uncoded 09/19/17 08:26 Results IRU - Labs Labs: I have reviewed the inpatient record. Exam Vital Signs: Temperature 97.7 F 09/22/17 16:00 Pulse Rate 76 09/22/17 16:00 Respiratory Rate 16 09/22/17 16:00 Blood Pressure 131/55 09/22/17 16:00 Pulse Oximetry 93 09/22/17 16:00 Height/Weight/BMI: Height 1.52 m Weight 82.6 kg Body Mass Index 35.5 - Constitutional Present: mild distress, well nourished, well developed, obese, cooperative - Routine HEENT Exam Head: Present: normocephalic, atraumatic. Absent: cushingoid faces, abrasion, laceration, hematoma Eye: Present: EOMI, PERRL. Absent: conjunctival icterus, scleral injection, periorbital swelling, nystagmus ENT: Present: mucous membranes moist, oropharynx clear - Routine Neck Exam Present: supple, full ROM, trachea midline. Absent: lymphadenopathy, thyromegaly, tenderness, swelling - Routine Chest/Breast/Axilla Exam Chest wall: Absent: tenderness, mass Axillae: Absent: lymphadenopathy, mass - Routine Respiratory Exam Present: CTA bilaterally. Absent: accessory muscle use, decreased breath sounds , prolonged expiratory phase, rales, respiratory distress, rhonchi, stridor, wheezes, crackles, distant breath sounds - Routine Cardiovascular Exam Present: RRR, S1, S2, no murmur. Absent: gallop, S3, S4, click, irregular rhythm - Routine Abdominal Exam Present: soft, normoactive bowel sounds, non distended, non tender. Absent: rebound, guarding, firm, rigid, organomegaly, mass, hernia, wound - Routine Extremities Exam Present: no edema, non tender, pulses intact, normal capillary refill. Absent: cyanosis, clubbing - Routine Back/Spine/Pelvis Exam Back/Spine: Present: full ROM. Absent: scoliosis, kyphosis Comments: Patient has multiple joint deformities particularly involving the small joints of her fingers. - Routine Skin Exam Present: intact, dry, warm. Absent: cyanosis, erythema, pallor, mottling, petechiae, urticaria, lesions, jaundice - Routine Neurological Exam Present: alert, oriented X3, CN II-XII intact, moving all extremities, normal speech - Routine Psychiatric Exam Present: normal affect, normal thought process, cooperative, good insight, good judgment. Absent: depressed, anxious Sepsis Assessment - Evaluation Severe Sepsis: none seen IRU A/P (1) Status post total hip replacement, right Current visit: Yes Status: Acute Patient requires close monitoring with regard to pain management as well as wound care. She will require a multidisciplinary approach with physical therapy and occupational therapy with 24-hour nursing supervision. (2) CKD (chronic kidney disease) Qualifiers: Chronic kidney disease stage: stage 3 (moderate) Qualified Code(s): N18.3 - Chronic kidney disease, stage 3 (moderate) Current visit: No Status: Chronic (3) Hypertension Qualifiers: Hypertension type: essential hypertension Qualified Code(s): I10 - Essential (primary) hypertension Current visit: No Status: Acute (4) Rheumatoid arthritis Qualifiers: Rheumatoid arthritis location: multiple sites Rheumatoid factor presence: unspecified presence Qualified Code(s): M06.9 - Rheumatoid arthritis, unspecified Current visit: No Status: Chronic She is currently off methotrexate for the surgery and recovery period. She has multiple joint aches. She was monitored carefully and pain management provided. (5) Acute blood loss anemia Current visit: Yes Status: Acute Patient required 2 units of packed red blood cells. Her hemoglobin is currently stable but this will be monitored. DVT Prophylaxis: SCD's, Lovenox Resuscitation Status: Do Not Intubate - Course Hospital Course: Sammy Bob MD: - Interventions to Obtain Goals PT Treatment Plan: Balance/Proprioception, Functional Activities, Gait Training , Patient/Family Education, Therapeutic Exercise OT Treatment Plan: ADL (Basic Care), Balance Training, Pt./Family Education, Ther. Exercise for ADL Goals Progress/Modifications: This patient requires a multidisciplinary approach with physical therapy, occupational therapy, 24 hour rehabilitation nursing to monitor for additional blood loss, wound management and pain management. She has rheumatoid arthritis with multiple joint aches and requires medical supervision because of this.
--- NOTE | 2017-09-22 18:16 | IRU 24Hr Post Admit Eval ---
24 Hr Post Admission Physical - Relevant Changes Relevant Changes: No Reviewed: I have reviewed the patient's information and concur with the finding and results of the pre-admission screen. Certification: I certify the patient for rehabilitation. - Patient Condition (1) Status post total hip replacement, right Status: Acute Code(s): Z96.641 - Presence of right artificial hip joint Classification: Present on IRF Admission, IRF Tx That Should Address Diagnosis, Diagnosis Requiring Medical Follow Up (2) Hypertension Status: Acute Qualifiers: Hypertension type: essential hypertension Qualified Code(s): I10 - Essential (primary) hypertension Code(s): I10 - Essential (primary) hypertension Classification: Present on IRF Admission, IRF Tx That Should Address Diagnosis, Diagnosis Requiring Medical Follow Up (3) Rheumatoid arthritis Status: Chronic Qualifiers: Rheumatoid arthritis location: multiple sites Rheumatoid factor presence: unspecified presence Qualified Code(s): M06.9 - Rheumatoid arthritis, unspecified Code(s): M06.9 - Rheumatoid arthritis, unspecified Classification: Present on IRF Admission, IRF Tx That Should Address Diagnosis, Diagnosis Requiring Medical Follow Up (4) Acute blood loss anemia Status: Acute Code(s): D62 - Acute posthemorrhagic anemia Classification: IRF Tx That Should Address Diagnosis, Diagnosis Requiring Medical Follow Up - Prior Functional Status Lives With: With Family Residence Type: Apartment/Private Home Assitive Devices: Front Wheeled Walker Prior Functional Status: Indep. at home or school, Used assistive device, Depend. w/ IADL - Current Functional Status Current Level of Function: Current level of functioning is as follows: She has quite a bit of discomfort in the hip. She is independent for eating but requires supervision for grooming , minimum assistance for bathing and lower body dressing. She is modified independent for upper body dressing but requires moderate assistance for toileting, maximal assistance for bed/chair/wheelchair transfers, moderate assistance for toilet transfers but maximum assistance for walking with a rolling walker 70 feet. Failed Alternative Therapy: Arrived from Acute Care Patient Requirements: The patient requires oversight by rehabilitation physician to manage their rehabilitation treatment plan and multidisciplinary approach to care that can only be provided in an IRF and requires a multidisciplinary approach to care, provided by professional PTs, OTs, STs, dieticians, RTs, rehabilitation nurses and is not available in lesser levels of care. Limitations Req: Mobility Impairment, ADL Impairment Physical Therapy Minutes: 90 Occupational Therapy Minutes: 90 Therapy: The patient is to receive therapy at least 5 days a week. ROM Deficit: Right Lower Extremity - Complications/Comorbidities Impact on Functional Outcomes: The patient's rheumatoid arthritis and associated pain will negatively impact her functional outcome. Barriers to Discharge: Weakness, Balance, Endurance, Pain Control - Plan to Avoid Complications Plan to Avoid Complications: The patient cannot receive this care in a lesser intensive setting such as Intermediate or Outpatient Therapy due to the patient requiring the following : Patient requires close monitoring and management of her pain in view of the rheumatoid arthritis and lack of methotrexate. She requires wound care and monitoring as well as a multidisciplinary approach with PT and OT and medical supervision.
[2017-09-22] MEDS: SENNOSIDES 8.6 MG TABLET PO SCH (20:43)
[2017-09-22] MEDS: DOCUSATE SODIUM 100 MG CAPSULE PO SCH (20:44)
[2017-09-22] MEDS: ASPIRIN *EC* 81 MG TABLET PO SCH (20:44)
[2017-09-22] MEDS: TIMOLOL 0.5% EYE DROPS 5 ML EACH EYE SCH (20:45)
[2017-09-23] MEDS: LEVOTHYROXINE 112 MCG TABLET PO SCH (05:44)
[2017-09-23] MEDS: TRAMADOL 50 MG TABLET PO PRN ×2 (05:45→22:34)
[2017-09-23] MEDS: OMEPRAZOLE 20 MG CAPSULE PO SCH (05:46)
[2017-09-23] MEDS: DOCUSATE SODIUM 100 MG CAPSULE PO SCH ×2 (08:20→20:54)
[2017-09-23] MEDS: AMLODIPINE 10 MG TABLET PO SCH (08:20)
[2017-09-23] MEDS: BENAZEPRIL 20 MG TABLET PO SCH (08:21)
[2017-09-23] MEDS: ACETAMINOPHEN 325 MG TABLET PO SCH ×4 (08:21→20:53)
[2017-09-23] MEDS: ASPIRIN *EC* 81 MG TABLET PO SCH ×2 (08:22→20:55)
[2017-09-23] MEDS: POLYETHYL GLYCOL 3350 17gm PACKET PO SCH (08:22)
[2017-09-23] MEDS: TIMOLOL 0.5% EYE DROPS 5 ML EACH EYE SCH ×2 (09:24→20:53)
--- NOTE | 2017-09-23 10:35 | Consult Note ---
Consult Information - Data of Consult Consult date: 09/23/17 Requesting Physician: Sammy Bob MD Primary Care Provider: Geraldine Narvaez DO Family Provider: Geraldine Narvaez DO - Consult Narrative Reason for consult: Medical management History of present illness: Kassandra Pyle is an 87 year old woman who is seen in consultation from Dr. Bob. She underwent a right total hip arthroplasty by Dr. Bridges on 09/19/17, and unfortunately also had an intraoperative periprosthetic fracture. Postoperatively, her hemoglobin decreased from 10.8-7.3 and she received 2 units of packed red cells on postop day #2; her hemoglobin subsequently improved to 11.7. On 09/21/17. She had an increase in pain, and repeat x-rays revealed that the implants were in stable alignment. She was medically stable for discharge from acute care on 09/22/17. She was admitted to IRU to help improve her level of functioning. Kassandra was seen in the morning of 09/23/17. She states that last night she had a headache, similar to the headache and neck pain that she's had previously, and associated with rheumatoid arthritis. Her headache has resolved this morning. She states that her hip was bothering her during breakfast, mostly because the chair was too tight and it was pressed against the arm of the chair. Now that she is in a wider chair, and no longer is bothering her. Because of her rheumatoid, she has diffuse joint aching. She otherwise is doing well and denies any fevers or chills, cough, sinus congestion or sore throat, weakness, dizziness or lightheadedness. She has not had any chest pain or palpitations, difficulty breathing. Her right leg is swollen and purple from the recent surgery, as she expected. She denies any abdominal pain or bloating, nausea, vomiting, diarrhea or constipation. Her appetite has been good. She denies any urinary pain, but states that she does urinate frequently. Her goal is to be able to return home. Past Medical History Medical History: Medical History (Last Reviewed 08/28/17 @ 12:14 by Yang Bridges MD) Bronchitis Cataracts, bilateral GERD (gastroesophageal reflux disease) Glaucoma High blood pressure Obstructive sleep apnea Osteoporosis Thyroid disease Surgical History: Right total hip arthroplasty 09/19/17. Thyroidectomy versus thyroid nodule removed. Bilateral total knee arthroplasties. "Back surgeries" 3. Skin cancer removed from nose. Cholecystectomy. Appendectomy. Tubal ligation Family History: Family History (Last Reviewed 08/28/17 @ 12:14 by Yang Bridges MD) Mother Aneurysm Arthritis High blood pressure Family History Updates: Her father from a motor vehicle accident. Her mother of a cerebral aneurysm. 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 Natalia Og PCP: Dr. Narvaez Review of Systems All systems PM: 10-point ROS was reviewed, no additional remarkable complaints except - Constitutional Constitutional: Present: headache(s). Absent: chills, fever(s), weakness - EENMT Eyes: Present: requires corrective lenses. Absent: change in vision Balance: Absent: vertigo Nose: Absent: obstruction Mouth/Throat: Absent: sore throat, changes in swallowing - Cardiovascular Cardiovascular: Absent: chest pain, palpitations Vascular: Present: unilateral swelling - Respiratory Respiratory: Absent: cough, dyspnea - Gastrointestinal Gastrointestinal: Absent: abdominal pain, constipation, diarrhea, hematochezia, nausea, vomiting - Genitourinary Genitourinary: Present: urinary frequency. Absent: dysuria - Musculoskeletal Musculoskeletal: Present: arthralgias, neck pain - Integumentary/Breasts Integumentary: Present: wounds (postop). Absent: rash - Neurological Neurological: Present: headache(s). Absent: confusion, dizziness, frequent falls, numbness, paresthesias, sensory deficit, vertigo, weakness - Psychiatric Psychiatric: Absent: anxiety, depression - Endocrine Endocrine: Absent: palpitations - Hematologic/Lymphatic Hematologic/Lymphatic: Present: easy bleeding, easy bruising Medications Home Medications Medication Instructions Recorded Confirmed Type hydroCHLOROthiazide 25 mg PO DAILY #0 12/20/09 09/22/17 History [Hydrochlorothiazide] Omeprazole 40 mg PO DAILY #0 05/24/12 09/22/17 History Calcium Carbonate/Vitamin D3 2 tab PO DAILY #0 11/26/15 09/22/17 History [Calcium 600-Vit D3 200 Tablet] Levothyroxine Sodium 112 mcg PO ACB #0 11/26/15 09/22/17 History Timolol Maleate/Pf [Timoptic 0.5% 1 drop BOTH EYES BID #0 11/26/15 09/22/17 History Ocudose Drop] Acetaminophen [Tylenol] 1,000 mg PO Q4-6HPRN PRN 08/16/17 09/22/17 History Amlodipine Besylate [Norvasc] 10 mg PO DAILY 08/16/17 09/22/17 History Benazepril [Lotensin] 20 mg PO DAILY 08/16/17 09/22/17 History Cholecalciferol (Vitamin D3) 2,000 unit PO DAILY 08/16/17 09/22/17 History [Vitamin D3] Diclofenac [Voltaren] 2 gm TP QID PRN 08/16/17 09/22/17 History Folic Acid [Folate] 2 mg PO BID 08/16/17 09/22/17 History Glucosamine/MSM/Chondroitin A 2 each PO DAILY 08/16/17 09/22/17 History [Triple Flex Caplet] Magnesium Oxide [Magnesium] 400 mg PO DAILY 08/16/17 09/22/17 History Multivit/Folic Acid/Vit K1 1 tab PO DAILY 08/16/17 09/22/17 History [One-A-Day Women's 50 Plus Tab] Hobart-3 Fatty Acids [Hobart-3] 2,000 mg PO DAILY 08/16/17 09/22/17 History Tramadol [Ultram] 50 mg PO Q6HR PRN 08/16/17 09/22/17 History cycloSPORINE [Restasis Multidose] 1 drops EACH EYE BID 08/16/17 09/22/17 History ergocalciferol (vitamin D2) 50,000 50,000 unit PO DAILY #2 cap 08/17/17 Rx unit capsule Acetaminophen [Tylenol] 650 mg PO QID tab 09/22/17 09/22/17 Rx Aspirin *EC* [Ecotrin] 81 mg PO BID tab 09/22/17 09/22/17 Rx DiphenhydrAMINE [Benadryl] 25 mg PO Q6H PRN cap 09/22/17 09/22/17 Rx Docusate Sodium [Colace] 100 mg PO BID cap 09/22/17 09/22/17 Rx LORazepam [Ativan] 1 mg PO HS PRN tab 09/22/17 09/22/17 Rx METHOTREXATE 2.5mg TAB 6 tab PO WEEKLY 09/22/17 09/22/17 History [Methotrexate] PEG 3350 17gm PACKET [Miralax] 17 gm PO DAILY packet 09/22/17 09/22/17 Rx Sennosides [Senna Lax] 17.2 mg PO DAILY PRN tab 09/22/17 09/22/17 Rx Sennosides [Senna Lax] 17.2 mg PO HS tab 09/22/17 09/22/17 Rx Tramadol [Ultram] 50 - 100 mg PO Q6H PRN tab 09/22/17 09/22/17 Rx Allergies Allergy/AdvReac Type Severity Reaction Status Date / Time adhesive tape Allergy Unknown Verified 09/19/17 08:26 azithromycin Allergy Unknown Hives Verified 09/19/17 08:26 bacitracin Allergy Unknown Hives Verified 09/19/17 08:26 clindamycin Allergy Unknown Hives Verified 09/19/17 08:26 guaifenesin Allergy Unknown Verified 09/19/17 08:26 hydrocodone Allergy Unknown Verified 09/19/17 08:26 morphine Allergy Unknown hallucinati Verified 09/19/17 08:26 ons naproxen Allergy Unknown Hives Verified 09/19/17 08:26 phenylephrine Allergy Unknown Hives Verified 09/19/17 08:26 [From AQUATAB D] phenylpropanolamine Allergy Unknown Verified 09/19/17 08:26 pseudoephedrine Allergy Unknown Verified 09/19/17 08:26 cyclobenzaprine AdvReac Intermediate SLURRED Verified 09/19/17 08:26 SPEECH TAPE Allergy Unknown Hives Uncoded 09/19/17 08:26 Exam Vital Signs: Temperature 98.5 F 09/23/17 08:00 Pulse Rate 92 09/23/17 08:00 Respiratory Rate 18 09/23/17 08:00 Blood Pressure 124/68 09/23/17 08:00 Pulse Oximetry 97 09/23/17 08:00 Height/Weight/BMI: Height 1.52 m Weight 82.6 kg Body Mass Index 35.5 - Constitutional Present: no acute distress, well nourished, well developed - Routine HEENT Exam Head: Present: normocephalic Eye: Present: PERRL. Absent: conjunctival icterus, scleral injection ENT: Present: mucous membranes moist - Routine Neck Exam Present: supple - Routine Respiratory Exam Present: CTA bilaterally - Routine Cardiovascular Exam Present: RRR, S1, S2 - Routine Abdominal Exam Present: soft, normoactive bowel sounds, non distended, non tender - Routine Extremities Exam Present: edema (RLE), pulses intact, normal capillary refill. Absent: calf tenderness, palpable cord - Routine Skin Exam Present: intact, dry, warm, wounds (dressing intact to right leg) - Routine Neurological Exam Present: alert, oriented X3, moving all extremities, vision grossly intact, hearing grossly intact. Absent: facial asymmetry - Routine Psychiatric Exam Present: normal affect, normal thought process, cooperative Results - Labs CBC & Chem 7: 09/23/17 05:43 09/23/17 05:43 Assessment and Plan Assessment and Plan: Assessment Status post right total hip arthroplasty on 09/19/17 Acute blood loss anemia, status post PRBC transfusion 2 Rheumatoid arthritis. Hypertension. BRYNN on CPAP. Hypothyroid. Chronic kidney disease stage III. Osteoporosis. Glaucoma. Plan Agree with orders per attending. Hemoglobin remained stable following blood transfusion, currently at 10.9. Chemistry panel is stable. Blood pressure is under good control on current regimen which includes Norvasc, benazepril and hydrochlorothiazide. Continue with bowel regimen. VTE prophylaxis: ASA BID. Thank you for this consultation. GI Prophylaxis: other (omeprazole) Resuscitation Status: Do Not Intubate - Physician Narrative Physician: Edouard Abrams MD Narrative: Date: 09/23/17 Time: 1757 I have independently interviewed and examined pt. Chart reviewed. Case discussed [employer]. Care plan developed with my supervision; agree with above. Patient just finished eating. Says she is doing well. Pain is controlled. Had R EMMY and intraoperative repair of periprosthetic fx on 09/19. Was transfused 2 units on 09/21. Denies lightheadedness. Lungs: clear CV: regular AB: soft nt MSE: alert Plan: Agree with admit to IRU. Continue VTE ppx. Monitor HGB. Encourage activity. Hospital Course Summary Disclaimer: The visit summary below is not to be considered part of the above Progress Note. Hospital Course: 09/23/17 Agree with orders per attending. Hemoglobin remained stable following blood transfusion, currently at 10.9. Chemistry panel is stable. Blood pressure is under good control on current regimen which includes Norvasc, benazepril and hydrochlorothiazide. Continue with bowel regimen. VTE prophylaxis: ASA BID.
[2017-09-23] MEDS: SENNOSIDES 8.6 MG TABLET PO SCH (20:54)
[2017-09-23] MEDS: LORazepam 1 MG TABLET PO PRN (23:56)
[2017-09-24] MEDS: OMEPRAZOLE 20 MG CAPSULE PO SCH (06:12)
[2017-09-24] MEDS: TRAMADOL 50 MG TABLET PO PRN (06:13)
[2017-09-24] MEDS: LEVOTHYROXINE 112 MCG TABLET PO SCH (06:13)
[2017-09-24] MEDS: ACETAMINOPHEN 325 MG TABLET PO SCH ×4 (08:56→20:59)
[2017-09-24] MEDS: ASPIRIN *EC* 81 MG TABLET PO SCH ×2 (08:57→21:00)
[2017-09-24] MEDS: BENAZEPRIL 20 MG TABLET PO SCH (08:57)
[2017-09-24] MEDS: AMLODIPINE 10 MG TABLET PO SCH (08:57)
[2017-09-24] MEDS: DOCUSATE SODIUM 100 MG CAPSULE PO SCH ×2 (08:57→21:00)
[2017-09-24] MEDS: POLYETHYL GLYCOL 3350 17gm PACKET PO SCH (08:58)
[2017-09-24] MEDS: TIMOLOL 0.5% EYE DROPS 5 ML EACH EYE SCH ×2 (11:42→21:00)
[2017-09-24] MEDS: LORazepam 1 MG TABLET PO PRN (20:59)
[2017-09-24] MEDS: SENNOSIDES 8.6 MG TABLET PO SCH (21:00)
[2017-09-25] MEDS: LEVOTHYROXINE 112 MCG TABLET PO SCH (06:00)
[2017-09-25] MEDS: OMEPRAZOLE 20 MG CAPSULE PO SCH (06:00)
[2017-09-25] MEDS: TRAMADOL 50 MG TABLET PO PRN ×2 (06:00→12:07)
[2017-09-25] MEDS: DOCUSATE SODIUM 100 MG CAPSULE PO SCH ×2 (08:50→20:22)
[2017-09-25] MEDS: ASPIRIN *EC* 81 MG TABLET PO SCH ×2 (08:50→20:18)
[2017-09-25] MEDS: AMLODIPINE 10 MG TABLET PO SCH (08:50)
[2017-09-25] MEDS: ACETAMINOPHEN 325 MG TABLET PO SCH ×2 (08:50→12:07)
[2017-09-25] MEDS: BENAZEPRIL 20 MG TABLET PO SCH (08:50)
[2017-09-25] MEDS: TIMOLOL 0.5% EYE DROPS 5 ML EACH EYE SCH ×2 (08:51→20:19)
[2017-09-25] MEDS: POLYETHYL GLYCOL 3350 17gm PACKET PO SCH (08:51)
[2017-09-25] MEDS ORDERED: POLYETHYL GLYCOL 3350 17gm PACKET PO PRN (13:18)
--- NOTE | 2017-09-25 13:20 | Progress Note ---
- Date 09/25/17 Subjective: Kassandra is having increased right hip pain today. It became worse while working with PT. She also reports diarrhea and said that she declined her laxative. She denies SOA or chest pain. No abdominal pain/cramps or nausea. She became slightly dizzy earlier while working hard with PT but that has resolved. Objective Vital signs: Temperature 97.8 F 09/25/17 09:18 Pulse Rate 89 09/25/17 09:18 Respiratory Rate 16 09/25/17 09:18 Blood Pressure 128/67 09/25/17 09:18 Pulse Oximetry 95 09/25/17 09:18 Height/Weight/BMI: Height 1.52 m Weight 82.6 kg Body Mass Index 35.5 - Constitutional Present: no acute distress, well nourished, well developed - Routine HEENT Exam Head: Present: normocephalic Eye: Present: PERRL. Absent: conjunctival icterus, scleral injection - Routine Respiratory Exam Present: CTA bilaterally - Routine Cardiovascular Exam Present: RRR, S1, S2 - Routine Abdominal Exam Present: soft, normoactive bowel sounds, non distended, non tender - Routine Extremities Exam Present: edema (RLE) - Routine Skin Exam Present: intact, dry, warm - Routine Neurological Exam Present: alert, oriented X3, normal speech - Routine Psychiatric Exam Present: normal affect, normal thought process, cooperative Results - Labs CBC & Chem 7: 09/23/17 05:43 09/23/17 05:43 Assessment and Plan Assessment and Plan: Assessment Status post right total hip arthroplasty on 09/19/17 Acute blood loss anemia, status post PRBC transfusion 2 Rheumatoid arthritis. Hypertension. BRYNN on CPAP. Hypothyroid. Chronic kidney disease stage III. Osteoporosis. Glaucoma. Plan Continue pain meds, therapy. Change Senna and MiraLAX to PRN rather than scheduled d/t pt report of frequent loose stools. Repeat CBC and BMP in am to f/u on recent ABLA and electrolytes d/t loose stools and diuretic use. VSS. GI Prophylaxis: other Resuscitation Status: Do Not Intubate - Physician Narrative Narrative: Date: 09/25/17 Time: 1316 Hospital Course Summary Disclaimer: The visit summary below is not to be considered part of the above Progress Note. Hospital Course: 09/23/17 Agree with orders per attending. Hemoglobin remained stable following blood transfusion, currently at 10.9. Chemistry panel is stable. Blood pressure is under good control on current regimen which includes Norvasc, benazepril and hydrochlorothiazide. Continue with bowel regimen. VTE prophylaxis: ASA BID. 09/25/17 Change Senna and MiraLAX to PRN rather than scheduled d/t pt report of frequent loose stools.
--- NOTE | 2017-09-25 13:38 | IRU Progress Note ---
- Subjective/Serverity of Illness Date: 09/25/17 Ms. Pyle is settling into rehabilitation nicely. She does have quite a bit of discomfort with activity. Continues to have joint aching related to her rheumatoid arthritis as well. She is being provided tramadol and she states that does help alleviate the pain for a time at least. The patient denies any shortness of breath or chest pain. Her appetite is reasonable. She has had some loose stools. With regard to her acute blood loss anemia, repeat hemoglobin is stable at 10 g percent. No evidence of ongoing bleeding at present. Exam Vital Signs: Temperature 97.8 F 09/25/17 09:18 Pulse Rate 89 09/25/17 09:18 Respiratory Rate 16 09/25/17 09:18 Blood Pressure 128/67 09/25/17 09:18 Pulse Oximetry 95 09/25/17 09:18 Height/Weight/BMI: Height 1.52 m Weight 82.6 kg Body Mass Index 35.5 - Constitutional Present: mild distress (right hip pain), well nourished, well developed, obese - Routine HEENT Exam Eye: Present: EOMI ENT: Present: mucous membranes moist, oropharynx clear - Routine Neck Exam Present: supple - Routine Respiratory Exam Present: CTA bilaterally. Absent: wheezes - Routine Cardiovascular Exam Present: RRR, S1, S2. Absent: murmur - Routine Abdominal Exam Present: soft, normoactive bowel sounds, non distended. Absent: tenderness - Routine Extremities Exam Present: edema (right leg), normal capillary refill - Routine Skin Exam Present: dry, warm - Routine Neurological Exam Present: alert, oriented X3, CN II-XII intact - Routine Psychiatric Exam Present: normal affect, cooperative, good insight, good judgment Results IRU - Labs Labs: I reviewed laboratory results and other providers notes. IRU A/P (1) Status post total hip replacement, right Current visit: Yes Status: Acute Patient has considerable discomfort with activity. She is on tramadol and states it is adequately helping her at least for a time. There is some mild edema in the right lower extremity as anticipated. (2) Hypertension Qualifiers: Hypertension type: essential hypertension Qualified Code(s): I10 - Essential (primary) hypertension Current visit: No Status: Acute Patient's blood pressures are reviewed and are reasonably well controlled at present. (3) Rheumatoid arthritis Qualifiers: Rheumatoid arthritis location: multiple sites Rheumatoid factor presence: unspecified presence Qualified Code(s): M06.9 - Rheumatoid arthritis, unspecified Current visit: No Status: Chronic She continues to have quite a bit of discomfort in most joints related to her rheumatoid arthritis. She remains off methotrexate as anticipated. She is on tramadol as needed. (4) Acute blood loss anemia Current visit: Yes Status: Acute Hemoglobin is stable at 10 g percent. DVT Prophylaxis: SCD's, Lovenox Resuscitation Status: Do Not Intubate - Course Hospital Course: Sammy Bob MD: 09/25/17 13:37 Patient is tolerating therapy reasonably well. On tramadol for pain which seems to help. A few loose stools. - Interventions to Obtain Goals PT Treatment Plan: Balance/Proprioception, Functional Activities, Gait Training , Patient/Family Education, Therapeutic Exercise OT Treatment Plan: ADL (Basic Care), Balance Training, Pt./Family Education, Ther. Exercise for ADL Goals Progress/Modifications: Patient is settling into the rehabilitation routine nicely. She denies any chest pain or any other cardiac or pulmonary symptoms. Does have quite a bit of joint pain. She is on tramadol with benefit. Has had some loose stools although no maximo diarrhea. Denies any abdominal pain. Appetite is good. Please note that the patient's individual plan of care was developed and documented today, requiring review of therapy notes, medical conditions and anticipated functional recovery. This required additional medical decision making with regard to interaction of the patient's medical issues with the anticipated functional recovery. Please see separate document.
--- NOTE | 2017-09-25 13:41 | IRU Plan of Care ---
[facility] Overall Plan of Care - Date Date: 09/25/17 - Patient Impairments (1) Acute blood loss anemia Code(s): D62 - Acute posthemorrhagic anemia Status: Acute Classification: IRF Tx That Should Address Diagnosis, Diagnosis Requiring Medical Follow Up (2) Status post total hip replacement, right Code(s): Z96.641 - Presence of right artificial hip joint Status: Acute Classification: Present on IRF Admission, IRF Tx That Should Address Diagnosis, Diagnosis Requiring Medical Follow Up (3) Hypertension Qualifiers: Hypertension type: essential hypertension Qualified Code(s): I10 - Essential (primary) hypertension Code(s): I10 - Essential (primary) hypertension Status: Acute Classification: Present on IRF Admission, IRF Tx That Should Address Diagnosis, Diagnosis Requiring Medical Follow Up (4) Rheumatoid arthritis Qualifiers: Rheumatoid arthritis location: multiple sites Rheumatoid factor presence: unspecified presence Qualified Code(s): M06.9 - Rheumatoid arthritis, unspecified Code(s): M06.9 - Rheumatoid arthritis, unspecified Status: Chronic Classification: Present on IRF Admission, IRF Tx That Should Address Diagnosis, Diagnosis Requiring Medical Follow Up - Relevant Changes Relevant Changes: No Reviewed: I have reviewed the patient's information and concur with the finding and results of the pre-admission screen. Certification: I certify the patient for rehabilitation. - Medical Prognosis Medical Prognosis: Good Vital Signs: Last Vital Signs Temp 97.8 F 09/25/17 09:18 Pulse 89 09/25/17 09:18 Resp 16 09/25/17 09:18 BP 128/67 09/25/17 09:18 Pulse Ox 95 09/25/17 09:18 - Anticipated Interventions Anticipated Interventions: The patient requires inpatient IRF care for PT, OT, and/or ST for residuals remaining from right total hip arthroplasty resulting in muscular weakness and strength deficits. An individualized overall plan of care has been developed after careful review of the patient's preadmission screening, post admission physician evaluation and assessments of all therapy disciplines and/or other pertinent clinicians involved in treating the patient. This indicates medical necessity and rehabilitation necessity have been established through a thorough review of all available medical information. ROM Deficit: Right Lower Extremity Strength Deficits: Right Lower Extremity - Current Functional Status Failed Alternative Therapy: Arrived from Acute Care Patient Requires: The patient requires oversight by rehabilitation physician to manage their rehabilitation treatment plan and multidisciplinary approach to care that can only be provided in an IRF and requires a multidisciplinary approach to care, provided by professional PTs, OTs, STs, rehabilitation nurses, and may require STs, dieticians, and RTS. This is not available in lesser levels of care. Physical Therapy Minutes: 90 Occupational Therapy Minutes: 90 Therapy: The patient is to receive therapy at least 5 days a week. - Anticipated LOS/Outcomes Anticipated Functional Outcome: It is anticipated the patient will be able to return to her home with modified independent to independent level of functioning for ADLs, transfers and ambulation. It is anticipated that her pain will be adequately controlled, she will be eating and drinking adequately and having good bowel movements.Expected functional improvements include: -- Modified independant to independant ambulation with or without assistive device -- Modified independant to independant ADL's with or without assistive device -- Return to pre-morbid level of mobility -- Maximize level of mobility and ADL's to decrease burden on any caregiver involved with this patient's care Anticipated DC Destination: Home, Self Care, Home Health Service Home Safety Plan: The patient will be provided with the development of a Home Safety Plan for return to a home or home-like environment and and to ensure safety post discharge. - Plan to Avoid Complications Barriers to Attaining Goals: Weakness, Endurance, Pain Control Plan to Avoid Complications: The patient cannot receive this care in a lesser intensive setting such as [facility] or Outpatient Therapy due to the patient requiring the following : Patient requires 24 hour rehabilitation nursing assessment of her pain in view of the chronic rheumatoid arthritis with superimposed right total hip arthroplasty pain. She requires a multidisciplinary approach with physical therapy and occupational therapy to allow her to return to her home in an independent or modified independent level of functioning. She requires medical supervision in view of her acute blood loss anemia, hypertension and management of pain.
[2017-09-26] MEDS: LEVOTHYROXINE 112 MCG TABLET PO SCH (05:54)
[2017-09-26] MEDS: OMEPRAZOLE 20 MG CAPSULE PO SCH (05:59)
[2017-09-26] MEDS: TRAMADOL 50 MG TABLET PO PRN ×3 (07:39→20:45)
[2017-09-26] MEDS: TIMOLOL 0.5% EYE DROPS 5 ML EACH EYE SCH ×2 (08:36→20:48)
[2017-09-26] MEDS: BENAZEPRIL 20 MG TABLET PO SCH (08:36)
[2017-09-26] MEDS: DOCUSATE SODIUM 100 MG CAPSULE PO SCH ×2 (08:36→20:46)
[2017-09-26] MEDS: ASPIRIN *EC* 81 MG TABLET PO SCH ×2 (08:36→20:47)
[2017-09-26] MEDS: AMLODIPINE 10 MG TABLET PO SCH (08:36)
--- NOTE | 2017-09-26 11:09 | Orthopedic Consult Note ---
Orthopedic Consultation HPI - Consultation Info Consult Date: 09/26/17 Attending Physician: Sammy Bob MD Consult Reason: other (sudden new right hip pain) - History of Present Illness Kassandra underwent elective total right hip arthroplasty 09/19/[address] Bridges. She had significant right hip/thigh hematoma post op day 1 and received blood transfusion. She ambulated well with walker. Thursday 09/21, patient complained of increased pain with ambulation in right hip and anterior thigh. Repeat xrays showed stable implant and cables, without slipping, or new fracture, dislocation. Patient was transferred to IRU that same day. She reports this pain resolved and overall pain has been well controlled. Has been up ambulating short distances with walker and tolerating well. This morning she had no pain, went to breakfast and had sudden onset of right hip and lateral thigh pain. No trauma or popping sensation. She states she sat in wide set wheelchair during breakfast without any pressure against right lateral thigh. Dr. Bridges was consulted to evaluate new sudden onset pain. Review of Systems - Constitutional Constitutional: Present: as per HPI - Cardiovascular Cardiovascular: Absent: chest pain - Respiratory Respiratory: Absent: cough, wheezing - Gastrointestinal Gastrointestinal: Absent: nausea - Musculoskeletal Musculoskeletal: Present: as per HPI - Integumentary/Breasts Integumentary: Present: as per HPI [facility] Patient Stated Medical History Cerebrovascular Accident No Paralysis No Seizures No Syncope No Glaucoma Yes Angina No Cardiac Arrhythmia No Congestive Heart Failure No Coronary Artery Disease No Heart Murmur No Hypertension Yes Hypotension No Myocardial Infarction No Rheumatic Fever No Valvular Heart Disease No Other Cardiology No Asthma No Chronic Obstructive Pulmonary No Disease (COPD) Pneumonia Yes: about 2 years ago Pulmonary Edema No Pulmonary Embolism No Sleep Apnea Yes: uses cpap 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 Diabetes Mellitus Type 1 No Diabetes Mellitus Type 2 No Cirrhosis No Constipation Yes: occasional Gastrointestinal Bleeding No Hepatitis No Hiatal Hernia No Obstructive Bowel No Ulcer No Hx Incontinence Yes Hx Kidney Stones Yes Hx Renal Disease Yes: CKD 3 Hx Urinary Tract Infection Yes: frequent Osteoarthritis Yes Other Musculoskeletal Yes: osteoporosis; RA Other Infectious Yes: wound infection after appy, hyst, & trigger finger Anesthesia Reactions Yes: hard to wake up Blood Transfusions Yes: no known reactions Chemotherapy No Malignant Hyperthermia No Other No Depression Yes: hip pain is making her depressed Post Menopausal Yes Now No Clinic Medical History (Last Reviewed 08/28/17 @ 12:14 by Yang Bridges MD) Bronchitis (Chronic Medical) Cataracts, bilateral (Chronic Medical) GERD (gastroesophageal reflux disease) (Chronic Medical) Glaucoma (Chronic Medical) High blood pressure (Chronic Medical) Obstructive sleep apnea (Chronic Medical) Osteoporosis (Chronic Medical) Thyroid disease (Chronic Medical) Surgical History: Right total hip arthroplasty 09/19/17. Thyroidectomy versus thyroid nodule removed. Bilateral total knee arthroplasties. "Back surgeries" 3. Skin cancer removed from nose. Cholecystectomy. Appendectomy. Tubal ligation Family History: Family History (Last Reviewed 08/28/17 @ 12:14 by Yang Bridges MD) Mother Aneurysm Arthritis High blood pressure Family History Updates: Her father from a motor vehicle accident. Her mother of a cerebral aneurysm. - Social History Smoking status: Never smoker second hand exposure: No Substance use type: does not use Alcohol intake: never Alcohol intake frequency: does not drink Housing: house Household members: family Current occupational status: retired Does patient use chewing tobacco?: No Current residence: Apartment/Private Home Medications Home Medications Medication Instructions Recorded Confirmed Type hydroCHLOROthiazide 25 mg PO DAILY #0 12/20/09 09/22/17 History [Hydrochlorothiazide] Omeprazole 40 mg PO DAILY #0 05/24/12 09/22/17 History Calcium Carbonate/Vitamin D3 2 tab PO DAILY #0 11/26/15 09/22/17 History [Calcium 600-Vit D3 200 Tablet] Levothyroxine Sodium 112 mcg PO ACB #0 11/26/15 09/22/17 History Timolol Maleate/Pf [Timoptic 0.5% 1 drop BOTH EYES BID #0 11/26/15 09/22/17 History Ocudose Drop] Acetaminophen [Tylenol] 1,000 mg PO Q4-6HPRN PRN 08/16/17 09/22/17 History Amlodipine Besylate [Norvasc] 10 mg PO DAILY 08/16/17 09/22/17 History Benazepril [Lotensin] 20 mg PO DAILY 08/16/17 09/22/17 History Cholecalciferol (Vitamin D3) 2,000 unit PO DAILY 08/16/17 09/22/17 History [Vitamin D3] Diclofenac [Voltaren] 2 gm TP QID PRN 08/16/17 09/22/17 History Folic Acid [Folate] 2 mg PO BID 08/16/17 09/22/17 History Glucosamine/MSM/Chondroitin A 2 each PO DAILY 08/16/17 09/22/17 History [Triple Flex Caplet] Magnesium Oxide [Magnesium] 400 mg PO DAILY 08/16/17 09/22/17 History Multivit/Folic Acid/Vit K1 1 tab PO DAILY 08/16/17 09/22/17 History [One-A-Day Women's 50 Plus Tab] [place]-3 Fatty Acids [[place]-3] 2,000 mg PO DAILY 08/16/17 09/22/17 History Tramadol [Ultram] 50 mg PO Q6HR PRN 08/16/17 09/22/17 History cycloSPORINE [Restasis Multidose] 1 drops EACH EYE BID 08/16/17 09/22/17 History ergocalciferol (vitamin D2) 50,000 50,000 unit PO DAILY #2 cap 08/17/17 Rx unit capsule Acetaminophen [Tylenol] 650 mg PO QID tab 09/22/17 09/22/17 Rx Aspirin *EC* [Ecotrin] 81 mg PO BID tab 09/22/17 09/22/17 Rx DiphenhydrAMINE [Benadryl] 25 mg PO Q6H PRN cap 09/22/17 09/22/17 Rx Docusate Sodium [Colace] 100 mg PO BID cap 09/22/17 09/22/17 Rx LORazepam [Ativan] 1 mg PO HS PRN tab 09/22/17 09/22/17 Rx METHOTREXATE 2.5mg TAB 6 tab PO WEEKLY 09/22/17 09/22/17 History [Methotrexate] PEG 3350 17gm PACKET [Miralax] 17 gm PO DAILY packet 09/22/17 09/22/17 Rx Sennosides [Senna Lax] 17.2 mg PO DAILY PRN tab 09/22/17 09/22/17 Rx Sennosides [Senna Lax] 17.2 mg PO HS tab 09/22/17 09/22/17 Rx Tramadol [Ultram] 50 - 100 mg PO Q6H PRN tab 09/22/17 09/22/17 Rx Allergies Allergy/AdvReac Type Severity Reaction Status Date / Time adhesive tape Allergy Unknown Verified 09/19/17 08:26 azithromycin Allergy Unknown Hives Verified 09/19/17 08:26 bacitracin Allergy Unknown Hives Verified 09/19/17 08:26 clindamycin Allergy Unknown Hives Verified 09/19/17 08:26 guaifenesin Allergy Unknown Verified 09/19/17 08:26 hydrocodone Allergy Unknown Verified 09/19/17 08:26 morphine Allergy Unknown hallucinati Verified 09/19/17 08:26 ons naproxen Allergy Unknown Hives Verified 09/19/17 08:26 phenylephrine Allergy Unknown Hives Verified 09/19/17 08:26 [From AQUATAB D] phenylpropanolamine Allergy Unknown Verified 09/19/17 08:26 pseudoephedrine Allergy Unknown Verified 09/19/17 08:26 cyclobenzaprine AdvReac Intermediate SLURRED Verified 09/19/17 08:26 SPEECH TAPE Allergy Unknown Hives Uncoded 09/19/17 08:26 Exam - Constitutional Vital Signs: Temperature 97.8 F 09/26/17 08:00 Pulse Rate 80 09/26/17 08:00 Respiratory Rate 16 09/26/17 08:00 Blood Pressure 114/68 09/26/17 08:00 Pulse Oximetry 96 09/26/17 08:00 General: cooperative, healthy appearing, no acute distress, well developed, well groomed Nutritional Appearance: well nourished Orientation: alert, oriented x3 - Gait Assistive Device: walker, wheelchair - RLE Postoperative Appearance: normal postoperative swelling, neurovascullary intact to extremities, other (extremity compartments are soft, tender to palpation lateral thigh along hematoma) Hip Palpation: Tender: lateral (lateral thigh tenderness > greater troch ), greater trochanter Skin: ecchymosis, other (hematoma bruising from right hip surgical incision mepilex dressing to just distally of popiteal. Mepilex dressing has minimal bloody drainage, stable with outlined margins. ) Neurological: no deficits, normal to light touch Vascular: dorsalis pedis pulse within normal limits - Respiratory Respiratory Exam: non-labored - Cardiac Cardiovascular exam: pedal pulses intact - Labs Result Diagrams: 09/26/17 06:43 09/26/17 06:43 Abnormal lab results 09/26/17 09/26/17 Range/Units 06:43 06:43 RBC 3.40 L (4.00-5.20) M/MM3 Hgb 10.8 L (12-16) GM/DL Hct 32.5 L (36-46) % RDW Std Deviation 62.8 H (36.9-50.2) FL Immature Gran % (Auto) 0.8 H (0.0-0.5) % Lymph % (Auto) 15.1 L (23-45) % [place] % (Auto) 14.2 H (0-9.0) % Eos % (Auto) 4.5 H (0-4) % [place] # (Auto) 0.9 H (0-0.8) T/MM3 Abs Immat Gran (auto) 0.05 H (0.00-0.03) T/MM3 Carbon Dioxide 31 H (22-30) MEQ/L BUN 39.0 H (7-17) MG/DL BUN/Creatinine Ratio 39 H (6-26) RATIO H & H 09/23/17 09/26/17 Range/Units 05:43 06:43 Hgb 10.9 L 10.8 L (12-16) GM/DL Hct 32.4 L 32.5 L (36-46) % Impression and Recommendation (1) Status post total hip replacement, right Current visit: Yes Status: Acute Repeat films today compared to post-operative and post op day 2. Right TKA implants in stable position with cables. No new fracture or dislocations, or slip of implants noted. May hold PT today, with gradually progression tomorrow. Hospital Course Summary Disclaimer: The visit summary below is not to be considered part of the above Progress Note. Hospital Course: 09/23/17 Agree with orders per attending. Hemoglobin remained stable following blood transfusion, currently at 10.9. Chemistry panel is stable. Blood pressure is under good control on current regimen which includes Norvasc, benazepril and hydrochlorothiazide. Continue with bowel regimen. VTE prophylaxis: ASA BID. 09/25/17 Change Senna and MiraLAX to PRN rather than scheduled d/t pt report of frequent loose stools.
--- NOTE | 2017-09-26 11:32 | IRU Progress Note ---
- Subjective/Serverity of Illness Date: 09/26/17 Kassandra states that her right hip. He is extremely painful this morning. Any movement, including even light touch is painful. She states that she did find going to bed last night. She got up to go the bathroom last night and went back to bed and had no difficulty. When she awakened this morning, she noted severe pain in the right hip. She is not able to participate in therapy due to the severe pain which appears to be new. She knows of no particular action which brought this on. She did not fall. There was no injury identified. I did contact Dr. Brdiges's speech and language assistant and she was seen by Lizette Knapp APRN with Dr. Bridges. Radiographs were obtained. I reviewed the films and, to my eye, I do not see any change from the immediate postoperative films. She does have quite a bit of ecchymosis noted in the right hip area. She is not on enoxaparin but is on aspirin 81 mg bid. Otherwise she denies any fever, chills, chest pain, shortness of breath. She reports her appetite is adequate and that she is having adequate bowel movements. She continues to have discomfort and generalized sense from her rheumatoid arthritis. Unfortunately we are very limited on what pain medications she can receive because of report of hives with hydrocodone and morphine in the past. She is tolerating tramadol without difficulty. Exam Vital Signs: Temperature 97.8 F 09/26/17 08:00 Pulse Rate 80 09/26/17 08:00 Respiratory Rate 16 09/26/17 08:00 Blood Pressure 114/68 09/26/17 08:00 Pulse Oximetry 96 09/26/17 08:00 Height/Weight/BMI: Height 1.52 m Weight 82.6 kg Body Mass Index 35.5 - Constitutional Present: moderate distress, well nourished, well developed, obese, cooperative - Routine HEENT Exam Head: Present: normocephalic Eye: Present: EOMI ENT: Present: mucous membranes moist - Routine Neck Exam Present: supple - Routine Respiratory Exam Present: CTA bilaterally. Absent: dyspnea, decreased breath sounds, wheezes - Routine Cardiovascular Exam Present: RRR, S1, S2. Absent: murmur - Routine Abdominal Exam Present: soft, normoactive bowel sounds, non distended. Absent: tenderness - Routine Extremities Exam Present: edema (1+ edema right lower extremity as anticipated from the surgery.) , normal capillary refill - Routine Skin Exam Present: dry, warm, ecchymosis (extensive ecchymoses noted right lateral thigh area.) Comments: Mild reddish tiny papular rash right groin consistent with heat rash. - Routine Neurological Exam Present: alert, oriented X3, CN II-XII intact - Routine Psychiatric Exam Present: normal affect, cooperative Results IRU - Labs Labs: Review of the new radiographs of the right hip and pelvis area. We will await official interpretation but I see nothing changed at this time. IRU A/P (1) Acute blood loss anemia Current visit: Yes Status: Acute Repeat hemoglobin is stable at around 10 g percent today. It has been stable for the last 3 days. (2) Status post total hip replacement, right Current visit: Yes Status: Acute She is experiencing significantly more discomfort today in the right hip. No trauma has been noted. She was reassessed by Dr. Bridges's B[employer]AGER and repeat radiographs were obtained. These have been reviewed by Dr. Bridges and indicate no change since the immediate postoperative films were obtained. Perhaps her pain is related to the ecchymoses. We will keep her on therapy hold today and hopefully gradually restart tomorrow. (3) Hypertension Qualifiers: Hypertension type: essential hypertension Qualified Code(s): I10 - Essential (primary) hypertension Current visit: No Status: Acute (4) Rheumatoid arthritis Qualifiers: Rheumatoid arthritis location: multiple sites Rheumatoid factor presence: unspecified presence Qualified Code(s): M06.9 - Rheumatoid arthritis, unspecified Current visit: No Status: Chronic DVT Prophylaxis: SCD's, Lovenox Resuscitation Status: Do Not Intubate - Course Hospital Course: Sammy Bob MD: 09/25/17 13:37 Patient is tolerating therapy reasonably well. On tramadol for pain which seems to help. A few loose stools. 09/26/17 11:45 Suddenly more pain in right hip today. Repeat films show no change and show a stable prosthesis. We will keep her on therapy for today and restart tomorrow gradually. Repeat hemoglobin stable at 10 g percent. - Interventions to Obtain Goals PT Treatment Plan: Balance/Proprioception, Functional Activities, Gait Training , Patient/Family Education, Therapeutic Exercise OT Treatment Plan: ADL (Basic Care), Balance Training, Pt./Family Education, Ther. Exercise for ADL Goals Progress/Modifications: Patient had sudden onset of worsening pain in the right hip today. I have communicated with David Knapp APRN with Dr. Bridges in this regard. She was assessed by Ms. Knapp. Radiographs were repeated and are reviewed by myself and Dr. Bridges and no changes identified from the immediate postoperative films. She does have quite a bit of ecchymoses in the right thigh area. However, her hemoglobin is stable. We will hold therapy today because of the severe pain but gradually restart tomorrow.
--- NOTE | 2017-09-26 12:14 | XRay Report ---
Indication: sudden increase right hip pain PROCEDURE: XR pelvis w/ 2 view RT hip: Encounter: Initial Comparison: None. Findings: The patient is status post right total hip arthroplasty. There is cerclage wires across the proximal femur in the intertrochanteric and subtrochanteric region. There is no definite lucency along the prosthesis. Impression: No definite bony destructive process. .
--- NOTE | 2017-09-26 15:07 | Progress Note ---
Progress Note: Patient is having significant pain despite the tramadol. She is on regular doses of acetaminophen. I was going to start her on some ibuprofen. She says that she has never taken that. However she appears to have an allergy to Naprosyn consisting of hives and for that reason we are unable to use the ibuprofen. She has numerous other medicinal allergies to narcotics including hydrocodone and morphine both of which cause hives. For this reason I'm reluctant to try oxycodone.
[2017-09-26] MEDS: LORazepam 1 MG TABLET PO PRN (20:45)
[2017-09-27] MEDS: LEVOTHYROXINE 112 MCG TABLET PO SCH (06:07)
[2017-09-27] MEDS: OMEPRAZOLE 20 MG CAPSULE PO SCH (06:08)
[2017-09-27] MEDS: TRAMADOL 50 MG TABLET PO PRN ×2 (06:08→13:36)
[2017-09-27] MEDS: DOCUSATE SODIUM 100 MG CAPSULE PO SCH ×2 (08:25→20:56)
[2017-09-27] MEDS: BENAZEPRIL 20 MG TABLET PO SCH (08:25)
[2017-09-27] MEDS: AMLODIPINE 10 MG TABLET PO SCH (08:25)
[2017-09-27] MEDS: ASPIRIN *EC* 81 MG TABLET PO SCH ×2 (08:25→20:56)
--- NOTE | 2017-09-27 08:25 | Orthopedic Progress Note ---
Date: Date: 09/27/17 Time: 815 Subjective/Severity of Illness: Kassandra is getting up to the side of the bed this morning when I visit. She states her pain improved since yesterday afternoon. Held PT yesterday and she feels that has helped, still was able to ambulate in her room with assistance. Instructed to gradually increase PT today. Reviewed xray results with patient again, and that implant is stable. Exam - Constitutional Vital Signs: Temperature 97.6 F 09/26/17 21:52 Pulse Rate 70 09/26/17 21:52 Respiratory Rate 20 09/26/17 21:52 Blood Pressure 107/56 09/26/17 21:52 Pulse Oximetry 98 09/26/17 21:52 General: cooperative, healthy appearing, no acute distress, well developed, well groomed Nutritional Appearance: well nourished Orientation: alert, oriented x3 - RLE Postoperative Appearance: normal postoperative swelling, neurovascullary intact to extremities, other (extremity compartments are soft, tender to palpation lateral thigh along hematoma) - Respiratory Respiratory Exam: non-labored - Cardiac Cardiovascular exam: pedal pulses intact - Labs Result Diagrams: 09/26/17 06:43 09/26/17 06:43 H & H 09/23/17 09/26/17 Range/Units 05:43 06:43 Hgb 10.9 L 10.8 L (12-16) GM/DL Hct 32.4 L 32.5 L (36-46) % Orthopedic Assessment and Plan (1) Status post total hip replacement, right Status: Acute Assessment and Plan: Continue to increase therapy as tolerated by pain. Ambulate with walker only for 8 weeks. Stable, will continue to monitor. Follow up in our office in 3 weeks as scheduled. - Anticoagulation Therapy Anticoagulation: ASA 81 mg PO BID x6 weeks Hospital Course Summary Disclaimer: The visit summary below is not to be considered part of the above Progress Note. Hospital Course: 09/23/17 Agree with orders per attending. Hemoglobin remained stable following blood transfusion, currently at 10.9. Chemistry panel is stable. Blood pressure is under good control on current regimen which includes Norvasc, benazepril and hydrochlorothiazide. Continue with bowel regimen. VTE prophylaxis: ASA BID. 09/25/17 Change Senna and MiraLAX to PRN rather than scheduled d/t pt report of frequent loose stools.
[2017-09-27] MEDS: TIMOLOL 0.5% EYE DROPS 5 ML EACH EYE SCH ×2 (11:08→20:56)
[2017-09-27] MEDS: LORazepam 1 MG TABLET PO PRN (21:47)
[2017-09-28] MEDS: TIMOLOL 0.5% EYE DROPS 5 ML EACH EYE SCH ×3 (04:31→21:44)
[2017-09-28] MEDS: LEVOTHYROXINE 112 MCG TABLET PO SCH (06:13)
[2017-09-28] MEDS: OMEPRAZOLE 20 MG CAPSULE PO SCH (06:13)
[2017-09-28] MEDS: DOCUSATE SODIUM 100 MG CAPSULE PO SCH ×2 (08:17→21:42)
[2017-09-28] MEDS: TRAMADOL 50 MG TABLET PO PRN (08:17)
[2017-09-28] MEDS: BENAZEPRIL 20 MG TABLET PO SCH (08:17)
[2017-09-28] MEDS: AMLODIPINE 10 MG TABLET PO SCH (08:17)
[2017-09-28] MEDS: ASPIRIN *EC* 81 MG TABLET PO SCH ×2 (08:17→21:41)
--- NOTE | 2017-09-28 11:19 | IRU Progress Note ---
- Subjective/Serverity of Illness Date: 09/28/17 Ms. Pyle states that her pain is doing much better. 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 However she is able to tolerate therapy much better. She denies any lightheadedness. Her appetite remains good. She does have some insomnia at night. Her hemoglobin has remained stable. She does have quite a bit of ecchymoses noted in the right lateral hip area. With regard to her other rheumatoid arthritis pains, she does have pain in both hands which has been exacerbated by use of the front-wheeled walker. Begin have reviewed her pain management situation. Unfortunately she reports urticaria to other narcotics as well as nonsteroidal anti-inflammatory drugs. Therefore tramadol is about all we can offer besides the Tylenol. Exam Vital Signs: Temperature 97.8 F 09/28/17 08:00 Pulse Rate 84 09/28/17 08:00 Respiratory Rate 16 09/28/17 08:00 Blood Pressure 119/67 09/28/17 08:00 Pulse Oximetry 97 09/28/17 08:00 Height/Weight/BMI: Height 1.52 m Weight 82.6 kg Body Mass Index 35.5 - Constitutional Present: mild distress (at rest and with ambulation she is doing reasonably well. However to palpate the right hip laterally there is discomfort.), well nourished, well developed, obese - Routine HEENT Exam Eye: Present: EOMI ENT: Present: mucous membranes moist, oropharynx clear - Routine Respiratory Exam Present: CTA bilaterally. Absent: wheezes - Routine Cardiovascular Exam Present: RRR, S1, S2. Absent: murmur - Routine Abdominal Exam Present: soft, normoactive bowel sounds, non distended. Absent: tenderness - Routine Extremities Exam Present: edema (1+ edema right lower extremity.), normal capillary refill - Routine Skin Exam Present: dry, warm, ecchymosis (extensive, involving right lateral thigh area.) - Routine Neurological Exam Present: alert, oriented X3, CN II-XII intact - Routine Psychiatric Exam Present: normal affect, cooperative, good insight, good judgment IRU A/P (1) Acute blood loss anemia Current visit: Yes Status: Acute Hemoglobin has remained stable since the transfusion. No evidence of ongoing bleeding. Does have extensive ecchymoses right lateral thigh but these appear to be slowly resolving as anticipated. (2) Status post total hip replacement, right Current visit: Yes Status: Acute Pain in the right hip is improved. She states taking a break from therapy was beneficial for her. She is now cooperative with therapy and making improvements. (3) Hypertension Qualifiers: Hypertension type: essential hypertension Qualified Code(s): I10 - Essential (primary) hypertension Current visit: No Status: Acute Her blood pressures have been well controlled. (4) Rheumatoid arthritis Qualifiers: Rheumatoid arthritis location: multiple sites Rheumatoid factor presence: unspecified presence Qualified Code(s): M06.9 - Rheumatoid arthritis, unspecified Current visit: No Status: Chronic DVT Prophylaxis: SCD's, Lovenox Resuscitation Status: Do Not Intubate - Course Hospital Course: Sammy Bob MD: 09/25/17 13:37 Patient is tolerating therapy reasonably well. On tramadol for pain which seems to help. A few loose stools. 09/26/17 11:45 Suddenly more pain in right hip today. Repeat films show no change and show a stable prosthesis. We will keep her on therapy for today and restart tomorrow gradually. Repeat hemoglobin stable at 10 g percent. 09/28/17 11:20 Pain management is difficult in view of her multiple medicinal allergies. Ecchymosis present right lateral hip, unchanged in slowly resolving. She is tolerating therapy well and cooperative. - Interventions to Obtain Goals PT Treatment Plan: Balance/Proprioception, Functional Activities, Gait Training , Patient/Family Education, Therapeutic Exercise OT Treatment Plan: ADL (Basic Care), Balance Training, Pt./Family Education, Ther. Exercise for ADL Goals Progress/Modifications: I have reassessed her today in a more global sense. She is stable and cooperative with therapy. Her pain was quite severe couple of days ago and we did hold therapy for a time. However she was assessed by orthopedics as well as myself and repeat radiograph showed no change in the prosthesis. She is able to ambulate today and is cooperative with therapy. At the present time we do not have many other options with regard to pain management in view of her urticaria with narcotics and nonsteroidal anti-inflammatory agents. She is able to eat and drink adequately. She does have some mild insomnia at night but overall tolerating therapy well.
--- NOTE | 2017-09-28 13:24 | IRU Team Meeting ---
IRU Team Meeting - Nursing Bladder Assistive Devices Utilized:: Absorbent Pad Bladder Management Level of Assist: Stand By Assist/Supervision Bowel Assistive Devices Utilized:: Medication, Absorbent Pad Bowel Management Level of Assist: Modified Independent Vital Signs: Vital Signs - 24 hr 09/27/17 16:00 09/27/17 20:54 09/28/17 08:00 Temperature 97.7 F 98.0 F 97.8 F Pulse Rate 66 67 84 Respiratory Rate 16 20 16 Blood Pressure 108/62 115/51 119/67 Pulse Oximetry 99 96 97 Current Medications: Acetaminophen (Tylenol Arthritis) 1,300 mg PO Q8HR [facility] Last Admin: 09/28/17 11:09 Dose: 1,300 mg Amlodipine Besylate (Norvasc) 10 mg PO DAILY [facility] Last Admin: 09/28/17 08:17 Dose: 10 mg Aspirin (Ecotrin) 81 mg PO BID [facility] Last Admin: 09/28/17 08:17 Dose: 81 mg Benazepril HCl (Lotensin) 20 mg PO DAILY [facility] Last Admin: 09/28/17 08:17 Dose: 20 mg Diphenhydramine HCl (Benadryl) 25 mg PO Q6H PRN PRN Reason: Itching Docusate Sodium (Colace) 100 mg PO BID [facility] Last Admin: 09/28/17 08:17 Dose: 100 mg Hydrochlorothiazide (Hydrodiuril) 25 mg PO WB [facility] Last Admin: 09/28/17 08:17 Dose: 25 mg Levothyroxine Sodium (Synthroid) 112 mcg PO ACB [facility] Last Admin: 09/28/17 06:13 Dose: 112 mcg Lorazepam (Ativan) 1 mg PO HS PRN PRN Reason: Sleep Last Admin: 09/27/17 21:47 Dose: 1 mg Omeprazole (Prilosec) 40 mg PO ACB [facility] Last Admin: 09/28/17 06:13 Dose: 40 mg Polyethylene Glycol (Miralax) 17 gm PO DAILY PRN PRN Reason: Constipation Senna (Senna Lax) 17.2 mg PO DAILY PRN PRN Reason: Constipation Timolol Maleate (Timoptic 0.5% Eye Drops) 1 drops EACH EYE BID [facility] Last Admin: 09/28/17 11:09 Dose: 1 drops Tramadol HCl (Ultram) 50 - 100 mg PO Q6H PRN PRN Reason: Pain Last Admin: 09/28/17 08:17 Dose: 100 mg Current Medical Issues: Acute blood loss anemia, rheumatoid arthritis with osteoarthritis and difficult pain management - Physical Therapy Bed, Chair, Wheelchair Transfer Assist: Moderate Assistance, 1 Person Assist Ambulation Ability: Stand By Assist/Supervision, Household Exception Ambulation Distance: 88 Wheelchair Propulsion Ability: Patient Unsafe/Unable Stair Climbing Ability: Stand By Assist/Supervision, Household Exception Number of Steps Climbed: 6 Car Transfer Ability: Moderate Assistance, 1 Person Assist Comments: While she is cooperative with therapy, she is limited by reduced exercise tolerance, requiring rest breaks for over 50% of therapy. She has demonstrated improved gait pattern and sequencing when not fatigued. Continues to have quite a bit of discomfort in the hip when she is up and about. - Occupational Therapy Eating Ability: Independent Grooming Ability: Stand By Assist/Supervision Bathing Ability: Stand By Assist/Supervision Upper Body Dressing Ability: Modified Independent Lower Body Dressing Ability: Stand By Assist/Supervision Tub Transfer Assist: Minimal Assistance, Patient Unsafe/Unable Toileting Assist: Stand By Assist/Supervision Toilet Transfer Assist: Stand By Assist/Supervision Comments: The patient is standby assist for lower body dressing but modified independent for upper body dressing. She has met her bathing and dressing goals. At this time efforts are underway to improve toileting to modified independent level. She does require supervision for safety with tasks at present. Also requires supervision when standing for grooming. - Goals Physical Therapy Goals: 09/28/17 Goals: 1.) Modified [place] with bed mobility and sit to stand transfers. 2.) Ambulate 150 feet with modified independence. Occupational Therapy Goals: OT goals 09/28/17: 1.) Toileting with modified independence. 2.) Simple meal preparation with supervision. - Barriers to Discharge Barriers to Attaining Goals: Weakness (working on progressive resistive exercises.), Endurance (goal for less rest breaks and repetition of activities to improve endurance.) - Care Plan Anticipated Length of Stay (days): 7 Anticipated Length of Stay: Reassess in one week Anticipated DC Destination: Home, Self Care, Home Health Service I have led this team conference and agree with the plan.
[2017-09-28] MEDS: LORazepam 1 MG TABLET PO PRN (21:46)
[2017-09-29] MEDS: LEVOTHYROXINE 112 MCG TABLET PO SCH ×2 (05:07→08:05)
[2017-09-29] MEDS: OMEPRAZOLE 20 MG CAPSULE PO SCH ×2 (05:07→08:05)
[2017-09-29] MEDS: ASPIRIN *EC* 81 MG TABLET PO SCH ×2 (08:26→20:28)
[2017-09-29] MEDS: DOCUSATE SODIUM 100 MG CAPSULE PO SCH ×2 (08:26→20:28)
[2017-09-29] MEDS: BENAZEPRIL 20 MG TABLET PO SCH (08:26)
[2017-09-29] MEDS: AMLODIPINE 10 MG TABLET PO SCH (08:26)
[2017-09-29] MEDS: TIMOLOL 0.5% EYE DROPS 5 ML EACH EYE SCH ×2 (08:27→20:28)
--- NOTE | 2017-09-29 11:44 | IRU Progress Note ---
- Subjective/Serverity of Illness Date: 09/29/17 Kassandra was interviewed and examined in her room with her family present. She states that she feels like she may have turned a corner and feels much better. She feels stronger. Pain is reasonably well controlled at present unless the right hip is palpated. Continues to make progress with therapy. Vital signs are stable. She reports that her hands, elbows and shoulders continue to be painful from her chronic arthritis. Therapy is been able to provide her with a shorter front- wheeled walker and this has helped hand pain considerably. She reports that her bowels are moving adequately. Exam Vital Signs: Temperature 97.6 F 09/29/17 07:34 Pulse Rate 68 09/29/17 07:34 Respiratory Rate 18 09/29/17 07:34 Blood Pressure 135/63 09/29/17 07:34 Pulse Oximetry 95 09/29/17 07:34 Height/Weight/BMI: Height 1.52 m Weight 79.5 kg Body Mass Index 35.5 - Constitutional Present: no acute distress, well nourished, well developed, cooperative - Routine HEENT Exam Eye: Present: EOMI ENT: Present: mucous membranes moist - Routine Respiratory Exam Present: CTA bilaterally. Absent: wheezes - Routine Cardiovascular Exam Present: RRR, S1, S2. Absent: murmur - Routine Abdominal Exam Present: soft, normoactive bowel sounds, non distended. Absent: tenderness - Routine Extremities Exam Present: edema (1+ right lower extremity), normal capillary refill - Routine Skin Exam Present: dry, warm, ecchymosis (right hip) - Routine Neurological Exam Present: alert, oriented X3, CN II-XII intact - Routine Psychiatric Exam Present: normal affect, cooperative, good insight, good judgment IRU A/P (1) Acute blood loss anemia Current visit: Yes Status: Acute Hemoglobin has remained stable at around 10 g percent. (2) Status post total hip replacement, right Current visit: Yes Status: Acute Pain seems to be controlled for the most part. (3) Hypertension Qualifiers: Hypertension type: essential hypertension Qualified Code(s): I10 - Essential (primary) hypertension Current visit: No Status: Acute (4) Rheumatoid arthritis Qualifiers: Rheumatoid arthritis location: multiple sites Rheumatoid factor presence: unspecified presence Qualified Code(s): M06.9 - Rheumatoid arthritis, unspecified Current visit: No Status: Chronic DVT Prophylaxis: SCD's, Lovenox Resuscitation Status: Do Not Intubate - Course Hospital Course: Sammy Bob MD: 09/25/17 13:37 Patient is tolerating therapy reasonably well. On tramadol for pain which seems to help. A few loose stools. 09/26/17 11:45 Suddenly more pain in right hip today. Repeat films show no change and show a stable prosthesis. We will keep her on therapy for today and restart tomorrow gradually. Repeat hemoglobin stable at 10 g percent. 09/28/17 11:20 Pain management is difficult in view of her multiple medicinal allergies. Ecchymosis present right lateral hip, unchanged in slowly resolving. She is tolerating therapy well and cooperative. 09/29/17 11:46 Patient feels stronger today. She is cooperative with therapy - Interventions to Obtain Goals PT Treatment Plan: Balance/Proprioception, Functional Activities, Gait Training , Patient/Family Education, Therapeutic Exercise OT Treatment Plan: ADL (Basic Care), Balance Training, Pt./Family Education, Ther. Exercise for ADL
--- NOTE | 2017-09-29 14:40 | Progress Note ---
- Date 09/29/17 Subjective: Kassandra was keeping busy in her room. She overall is doing well and feels like she's making gains. She denies chest pain, SOA, or dizziness. She denies any abdominal pain or GI complaints including constipation. She does note some increased pain to her right shoulder, which may have been exacerbated by therapy. Otherwise has no new complaints. Objective Vital signs: Temperature 97.6 F 09/29/17 07:34 Pulse Rate 68 09/29/17 07:34 Respiratory Rate 18 09/29/17 07:34 Blood Pressure 135/63 09/29/17 07:34 Pulse Oximetry 95 09/29/17 07:34 Height/Weight/BMI: Height 1.52 m Weight 79.5 kg Body Mass Index 35.5 - Constitutional Present: no acute distress, well nourished, well developed - Routine HEENT Exam Head: Present: normocephalic Eye: Present: PERRL. Absent: conjunctival icterus, scleral injection - Routine Respiratory Exam Present: crackles (faint bibasilar crackles) - Routine Cardiovascular Exam Present: RRR, S1, S2, murmur - Routine Abdominal Exam Present: soft, normoactive bowel sounds, non distended, non tender - Routine Extremities Exam Present: edema (RLE) - Routine Skin Exam Present: dry, warm, ecchymosis (postop to RLE) - Routine Neurological Exam Present: alert, oriented X3, normal speech - Routine Psychiatric Exam Present: normal affect, normal thought process, cooperative Results - Labs CBC & Chem 7: 09/26/17 06:43 09/26/17 06:43 Assessment and Plan Assessment and Plan: Assessment Status post right total hip arthroplasty on 09/19/17 Acute blood loss anemia, status post PRBC transfusion 2 Rheumatoid arthritis. Hypertension. BRYNN on CPAP. Hypothyroid. Chronic kidney disease stage III. Osteoporosis. Glaucoma. Plan Labs reviewed: Hgb stable at 10.8; BMP unremarkable. Encouraged use of IS -- crackles noted on today's exam. Medically stable. DVT Prophylaxis: other (ASA BID) GI Prophylaxis: other Resuscitation Status: Do Not Intubate - Physician Narrative Narrative: Date: 09/29/17 Time: 1436 Hospital Course Summary Disclaimer: The visit summary below is not to be considered part of the above Progress Note. Hospital Course: 09/23/17 Agree with orders per attending. Hemoglobin remained stable following blood transfusion, currently at 10.9. Chemistry panel is stable. Blood pressure is under good control on current regimen which includes Norvasc, benazepril and hydrochlorothiazide. Continue with bowel regimen. VTE prophylaxis: ASA BID. 09/25/17 Change Senna and MiraLAX to PRN rather than scheduled d/t pt report of frequent loose stools. 09/29/17 Labs reviewed: Hgb stable at 10.8; BMP unremarkable. Encouraged use of IS -- crackles noted on today's exam. Medically stable.
[2017-09-29] MEDS: LORazepam 1 MG TABLET PO PRN (21:46)
[2017-09-30] MEDS: LEVOTHYROXINE 112 MCG TABLET PO SCH ×2 (03:40→05:32)
[2017-09-30] MEDS: OMEPRAZOLE 20 MG CAPSULE PO SCH ×2 (03:40→05:32)
[2017-09-30] MEDS: DOCUSATE SODIUM 100 MG CAPSULE PO SCH ×2 (08:36→20:00)
[2017-09-30] MEDS: BENAZEPRIL 20 MG TABLET PO SCH (08:37)
[2017-09-30] MEDS: ASPIRIN *EC* 81 MG TABLET PO SCH ×2 (08:37→20:00)
[2017-09-30] MEDS: AMLODIPINE 10 MG TABLET PO SCH (08:38)
[2017-09-30] MEDS: TIMOLOL 0.5% EYE DROPS 5 ML EACH EYE SCH ×2 (08:54→20:00)
[2017-09-30] MEDS: LORazepam 1 MG TABLET PO PRN (20:00)
[2017-10-01] MEDS: LEVOTHYROXINE 112 MCG TABLET PO SCH (05:37)
[2017-10-01] MEDS: OMEPRAZOLE 20 MG CAPSULE PO SCH (05:38)
[2017-10-01] MEDS: TIMOLOL 0.5% EYE DROPS 5 ML EACH EYE SCH ×2 (08:10→20:03)
[2017-10-01] MEDS: DOCUSATE SODIUM 100 MG CAPSULE PO SCH ×2 (08:11→20:03)
[2017-10-01] MEDS: AMLODIPINE 10 MG TABLET PO SCH (08:11)
[2017-10-01] MEDS: ASPIRIN *EC* 81 MG TABLET PO SCH ×2 (08:11→20:02)
[2017-10-01] MEDS: BENAZEPRIL 20 MG TABLET PO SCH (08:17)
[2017-10-01] MEDS: LORazepam 1 MG TABLET PO PRN (20:02)
[2017-10-02] MEDS: LEVOTHYROXINE 112 MCG TABLET PO SCH ×2 (05:20→06:22)
[2017-10-02] MEDS: OMEPRAZOLE 20 MG CAPSULE PO SCH ×2 (05:20→06:22)
[2017-10-02] MEDS: AMLODIPINE 10 MG TABLET PO SCH (08:26)
[2017-10-02] MEDS: TIMOLOL 0.5% EYE DROPS 5 ML EACH EYE SCH ×2 (08:26→21:35)
[2017-10-02] MEDS: DOCUSATE SODIUM 100 MG CAPSULE PO SCH ×2 (08:26→21:34)
[2017-10-02] MEDS: ASPIRIN *EC* 81 MG TABLET PO SCH ×2 (08:26→21:34)
[2017-10-02] MEDS: BENAZEPRIL 20 MG TABLET PO SCH (08:26)
--- NOTE | 2017-10-02 10:40 | IRU Progress Note ---
- Subjective/Serverity of Illness Date: 10/02/17 Kassandra states that her pain is much improved with regard to the right hip. There is some sensitivity and some tingling in the right hip area. I inspected the right hip. The ecchymoses are much improved. There is some minor redness noted in the surrounding area. I did not remove the dressing at this time. The patient denies any chest pain. She continues to have discomfort in other joints as anticipated. She does have easy fatigability. Upon exam she does have some dry crackles in her lungs. However she denies any shortness of breath nor cough. In addition, her weight is actually down. Exam Vital Signs: Temperature 97.4 F 10/02/17 08:00 Pulse Rate 81 10/02/17 08:00 Respiratory Rate 16 10/02/17 08:00 Blood Pressure 112/61 10/02/17 08:00 Pulse Oximetry 100 10/02/17 08:00 Height/Weight/BMI: Height 1.52 m Weight 79.5 kg Body Mass Index 35.5 - Constitutional Present: well nourished, well developed, obese, cooperative - Routine HEENT Exam Eye: Present: EOMI ENT: Present: mucous membranes moist, oropharynx clear - Routine Respiratory Exam Present: CTA bilaterally, crackles ("dry" rales noted in both lungs lower aspects. Wonder if this may be related to her underlying rheumatoid arthritis?) . Absent: wheezes - Routine Cardiovascular Exam Present: RRR, S1, S2. Absent: murmur - Routine Abdominal Exam Present: soft, normoactive bowel sounds, non distended. Absent: tenderness - Routine Extremities Exam Present: no edema (no edema in the ankles. Right lateral thigh continues to be puffy with some minor erythema.), normal capillary refill - Routine Skin Exam Present: dry, warm - Routine Neurological Exam Present: alert, oriented X3, CN II-XII intact - Routine Psychiatric Exam Present: normal affect, normal thought process, cooperative, good insight, good judgment IRU A/P (1) Acute blood loss anemia Current visit: Yes Status: Acute Repeat hemoglobin today indicate stability in her hemoglobin at 10.5. No evidence of ongoing bleeding. Ecchymoses are improved. (2) Status post total hip replacement, right Current visit: Yes Status: Acute Patient states that pain management is good. There is some minimal stranding erythema in the right lateral thigh. I will inspect further when nurse available. (3) Hypertension Qualifiers: Hypertension type: essential hypertension Qualified Code(s): I10 - Essential (primary) hypertension Current visit: No Status: Acute Blood pressures are well controlled at present. (4) Rheumatoid arthritis Qualifiers: Rheumatoid arthritis location: multiple sites Rheumatoid factor presence: unspecified presence Qualified Code(s): M06.9 - Rheumatoid arthritis, unspecified Current visit: No Status: Chronic Continues to have discomfort in other joints particularly finger joints etc. Also has some dry crackles in the lungs which may well be related to " rheumatoid lung." Denies dyspnea, cough. Her weight is down. DVT Prophylaxis: other (ASA BID) Resuscitation Status: Do Not Intubate - Course Hospital Course: Sammy Bob MD: 09/25/17 13:37 Patient is tolerating therapy reasonably well. On tramadol for pain which seems to help. A few loose stools. 09/26/17 11:45 Suddenly more pain in right hip today. Repeat films show no change and show a stable prosthesis. We will keep her on therapy for today and restart tomorrow gradually. Repeat hemoglobin stable at 10 g percent. 09/28/17 11:20 Pain management is difficult in view of her multiple medicinal allergies. Ecchymosis present right lateral hip, unchanged in slowly resolving. She is tolerating therapy well and cooperative. 09/29/17 11:46 Patient feels stronger today. She is cooperative with therapy 10/02/17 10:41 Pain management improved she states. Ecchymoses improved. Hemoglobin stable. Some erythema around the wound and we will reassess that later today. - Interventions to Obtain Goals PT Treatment Plan: Balance/Proprioception, Functional Activities, Gait Training , Patient/Family Education, Therapeutic Exercise OT Treatment Plan: ADL (Basic Care), Balance Training, Pt./Family Education, Ther. Exercise for ADL Goals Progress/Modifications: Patient is cooperative with therapy and making progress. Ecchymoses are improved. Hemoglobin is stable. We will reassess the surrounding erythema today later on. Does have some "dry crackles" in the lungs but she denies any symptoms whatsoever of dyspnea nor cough. In addition her weight is actually down. These may be chronic and this related to "rheumatoid lung."
--- NOTE | 2017-10-02 10:57 | Progress Note ---
- Date 10/02/17 Subjective: Follow-up: 87-year-old female S/P elective total right hip replacement with Dr. Bridges on 09/19/17. Patient is seen today during therapy. She reports overall she is doing very well. She's not having any pain. She states she did have some sneezing last night she has a runny nose this morning, but no other signs of fever or cold symptoms. Appetite is fair. Bowels are moving. No chest pain or shortness of breath or cough. Objective Vital signs: Temperature 97.4 F 10/02/17 08:00 Pulse Rate 81 10/02/17 08:00 Respiratory Rate 16 10/02/17 08:00 Blood Pressure 112/61 10/02/17 08:00 Pulse Oximetry 100 10/02/17 08:00 Height/Weight/BMI: Height 1.52 m Weight 79.5 kg Body Mass Index 35.5 - Constitutional Present: no acute distress, well nourished, well developed - Routine HEENT Exam Head: Present: normocephalic, atraumatic - Routine Respiratory Exam Present: CTA bilaterally, crackles (bilateral bases). Absent: wheezes - Routine Cardiovascular Exam Present: RRR, no murmur - Routine Abdominal Exam Present: soft, non distended, non tender - Routine Extremities Exam Present: no edema, normal capillary refill - Routine Skin Exam Present: dry, warm - Routine Neurological Exam Present: alert, oriented X3 - Routine Lymphatic Exam Lymphatic: Absent: adenopathy - Routine Psychiatric Exam Present: normal affect, cooperative Results - Labs CBC & Chem 7: 10/02/17 04:52 10/02/17 04:52 Assessment and Plan Assessment and Plan: Assessment Status post right total hip arthroplasty on 09/19/17 Acute blood loss anemia, status post PRBC transfusion 2 Rheumatoid arthritis. Hypertension. BRYNN on CPAP. Hypothyroid. Chronic kidney disease stage III. Osteoporosis. Glaucoma. Plan Pain is controlled. Labs reviewed and are stable. Crackles in lungs may be rate related to "rheumatoid lung," as her weight is down and she is having no cough or dyspnea. Will follow. Reviewed rehabilitation notes, vital signs and nurse's notes. - Physician Narrative Narrative: Date: 10/02/17 Time: 1053 Hospital Course Summary Disclaimer: The visit summary below is not to be considered part of the above Progress Note. Hospital Course: 09/23/17 Agree with orders per attending. Hemoglobin remained stable following blood transfusion, currently at 10.9. Chemistry panel is stable. Blood pressure is under good control on current regimen which includes Norvasc, benazepril and hydrochlorothiazide. Continue with bowel regimen. VTE prophylaxis: ASA BID. 09/25/17 Change Senna and MiraLAX to PRN rather than scheduled d/t pt report of frequent loose stools. 09/29/17 Labs reviewed: Hgb stable at 10.8; BMP unremarkable. Encouraged use of IS -- crackles noted on today's exam. Medically stable. 10/02/17 Pain is controlled. Labs reviewed and are stable. Crackles in lungs may be rate related to "rheumatoid lung," as her weight is down and she is having no cough or dyspnea. Will follow. Reviewed rehabilitation notes, vital signs and nurse's notes.
[2017-10-02] MEDS: LORazepam 1 MG TABLET PO PRN (21:32)
[2017-10-03] MEDS: LEVOTHYROXINE 112 MCG TABLET PO SCH (06:22)
[2017-10-03] MEDS: OMEPRAZOLE 20 MG CAPSULE PO SCH (06:22)
[2017-10-03] MEDS: AMLODIPINE 10 MG TABLET PO SCH (08:09)
[2017-10-03] MEDS: DOCUSATE SODIUM 100 MG CAPSULE PO SCH ×2 (08:09→20:01)
[2017-10-03] MEDS: BENAZEPRIL 20 MG TABLET PO SCH (08:09)
[2017-10-03] MEDS: ASPIRIN *EC* 81 MG TABLET PO SCH ×2 (08:09→20:01)
[2017-10-03] MEDS: TIMOLOL 0.5% EYE DROPS 5 ML EACH EYE SCH ×2 (08:10→20:02)
--- NOTE | 2017-10-03 10:25 | IRU Progress Note ---
- Subjective/Serverity of Illness Date: 10/03/17 Kassandra states that her pain is doing much better with regard to the right hip. It is less tender to palpate. Does not really have much in the way of edema in the ankles. She is cooperative with therapy and making progress. Her appetite is good. She says that sleeping is improved as well. Exam Vital Signs: Temperature 97.6 F 10/03/17 08:00 Pulse Rate 61 10/03/17 08:00 Respiratory Rate 16 10/03/17 08:00 Blood Pressure 125/67 10/03/17 08:00 Pulse Oximetry 95 10/03/17 08:00 Height/Weight/BMI: Height 1.52 m Weight 79.5 kg Body Mass Index 35.5 - Constitutional Present: no acute distress, well nourished, well developed, cooperative - Routine HEENT Exam Eye: Present: EOMI ENT: Present: mucous membranes moist, oropharynx clear - Routine Neck Exam Present: supple - Routine Respiratory Exam Present: CTA bilaterally. Absent: wheezes - Routine Cardiovascular Exam Present: RRR, S1, S2. Absent: murmur - Routine Abdominal Exam Present: soft, normoactive bowel sounds, non distended. Absent: tenderness - Routine Extremities Exam Present: no edema - Routine Skin Exam Present: dry, warm - Routine Neurological Exam Present: alert, oriented X3, CN II-XII intact - Routine Psychiatric Exam Present: normal affect, normal thought process, cooperative, good insight, good judgment IRU A/P (1) Acute blood loss anemia Current visit: Yes Status: Acute Repeat hemoglobin yesterday is stable. No further evidence of blood loss. I will inspect the right hip area with regard to erythema and ecchymosis when the nurse is available. (2) Status post total hip replacement, right Current visit: Yes Status: Acute Pain management is improved according to the patient. (3) Hypertension Qualifiers: Hypertension type: essential hypertension Qualified Code(s): I10 - Essential (primary) hypertension Current visit: No Status: Acute Patient's blood pressures are doing very well. (4) Rheumatoid arthritis Qualifiers: Rheumatoid arthritis location: multiple sites Rheumatoid factor presence: unspecified presence Qualified Code(s): M06.9 - Rheumatoid arthritis, unspecified Current visit: No Status: Chronic DVT Prophylaxis: other (ASA BID) Resuscitation Status: Do Not Intubate - Course Hospital Course: Sammy Bob MD: 09/25/17 13:37 Patient is tolerating therapy reasonably well. On tramadol for pain which seems to help. A few loose stools. 09/26/17 11:45 Suddenly more pain in right hip today. Repeat films show no change and show a stable prosthesis. We will keep her on therapy for today and restart tomorrow gradually. Repeat hemoglobin stable at 10 g percent. 09/28/17 11:20 Pain management is difficult in view of her multiple medicinal allergies. Ecchymosis present right lateral hip, unchanged in slowly resolving. She is tolerating therapy well and cooperative. 09/29/17 11:46 Patient feels stronger today. She is cooperative with therapy 10/02/17 10:41 Pain management improved she states. Ecchymoses improved. Hemoglobin stable. Some erythema around the wound and we will reassess that later today. 10/03/17 10:25 Continues to progress with therapy. Hemoglobin stable. Pain is improved. - Interventions to Obtain Goals PT Treatment Plan: Balance/Proprioception, Functional Activities, Gait Training , Patient/Family Education, Therapeutic Exercise OT Treatment Plan: ADL (Basic Care), Balance Training, Pt./Family Education, Ther. Exercise for ADL
[2017-10-03] MEDS: TRAMADOL 50 MG TABLET PO PRN (10:38)
[2017-10-03] MEDS: LORazepam 1 MG TABLET PO PRN (20:02)
[2017-10-04] MEDS: OMEPRAZOLE 20 MG CAPSULE PO SCH (05:45)
[2017-10-04] MEDS: LEVOTHYROXINE 112 MCG TABLET PO SCH (05:45)
[2017-10-04] MEDS: BENAZEPRIL 20 MG TABLET PO SCH (08:26)
[2017-10-04] MEDS: AMLODIPINE 10 MG TABLET PO SCH (08:26)
[2017-10-04] MEDS: DOCUSATE SODIUM 100 MG CAPSULE PO SCH ×2 (08:27→21:53)
[2017-10-04] MEDS: ASPIRIN *EC* 81 MG TABLET PO SCH ×2 (08:27→21:53)
[2017-10-04] MEDS: TIMOLOL 0.5% EYE DROPS 5 ML EACH EYE SCH ×2 (08:27→21:53)
[2017-10-04] MEDS: LORazepam 1 MG TABLET PO PRN (21:53)
[2017-10-05] MEDS: OMEPRAZOLE 20 MG CAPSULE PO SCH ×2 (04:20→05:33)
[2017-10-05] MEDS: LEVOTHYROXINE 112 MCG TABLET PO SCH ×2 (04:20→05:32)
[2017-10-05] MEDS: AMLODIPINE 10 MG TABLET PO SCH (08:55)
[2017-10-05] MEDS: BENAZEPRIL 20 MG TABLET PO SCH (08:57)
[2017-10-05] MEDS: TIMOLOL 0.5% EYE DROPS 5 ML EACH EYE SCH ×2 (08:57→21:37)
[2017-10-05] MEDS: ASPIRIN *EC* 81 MG TABLET PO SCH ×2 (08:57→21:37)
[2017-10-05] MEDS: DOCUSATE SODIUM 100 MG CAPSULE PO SCH ×2 (08:57→21:37)
--- NOTE | 2017-10-05 11:06 | IRU Progress Note ---
- Subjective/Serverity of Illness Date: 10/05/17 Kassandra was evaluated in her room on inpatient rehabilitation. She states that her pain is well controlled in the right hip area. She denies shortness of breath or chest pain. She has done very well with therapy and has been very cooperative. The patient states that she feels comfortable going home and feels safe with this transition. Her hemoglobin has remained stable. There has been no further evidence of acute blood loss. Exam Vital Signs: Temperature 98.0 F 10/05/17 08:00 Pulse Rate 67 10/05/17 08:00 Respiratory Rate 16 10/05/17 08:00 Blood Pressure 123/56 10/05/17 08:00 Pulse Oximetry 97 10/05/17 08:00 Height/Weight/BMI: Height 1.52 m Weight 79.6 kg Body Mass Index 35.5 - Constitutional Present: no acute distress, well nourished, well developed, average body habitus , cooperative - Routine HEENT Exam Head: Present: normocephalic Eye: Present: EOMI ENT: Present: mucous membranes moist, oropharynx clear - Routine Respiratory Exam Present: CTA bilaterally. Absent: wheezes - Routine Cardiovascular Exam Present: RRR, S1, S2. Absent: murmur - Routine Abdominal Exam Present: soft, normoactive bowel sounds, non distended. Absent: tenderness - Routine Extremities Exam Present: no edema, normal capillary refill - Routine Skin Exam Present: dry, warm - Routine Neurological Exam Present: alert, oriented X3, CN II-XII intact - Routine Psychiatric Exam Present: normal affect, cooperative, good insight, good judgment IRU A/P (1) Status post total hip replacement, right Current visit: Yes Status: Acute Patient reports adequate pain management at the present time. Anticipation is for a safe transition to her home environment. (2) Acute blood loss anemia Current visit: Yes Status: Acute (3) Hypertension Qualifiers: Hypertension type: essential hypertension Qualified Code(s): I10 - Essential (primary) hypertension Current visit: No Status: Acute Her blood pressures have been well controlled. (4) Rheumatoid arthritis Qualifiers: Rheumatoid arthritis location: multiple sites Rheumatoid factor presence: unspecified presence Qualified Code(s): M06.9 - Rheumatoid arthritis, unspecified Current visit: No Status: Chronic DVT Prophylaxis: other (ASA BID) Resuscitation Status: Do Not Intubate - Course Hospital Course: Sammy Bob MD: 09/25/17 13:37 Patient is tolerating therapy reasonably well. On tramadol for pain which seems to help. A few loose stools. 09/26/17 11:45 Suddenly more pain in right hip today. Repeat films show no change and show a stable prosthesis. We will keep her on therapy for today and restart tomorrow gradually. Repeat hemoglobin stable at 10 g percent. 09/28/17 11:20 Pain management is difficult in view of her multiple medicinal allergies. Ecchymosis present right lateral hip, unchanged in slowly resolving. She is tolerating therapy well and cooperative. 09/29/17 11:46 Patient feels stronger today. She is cooperative with therapy 10/02/17 10:41 Pain management improved she states. Ecchymoses improved. Hemoglobin stable. Some erythema around the wound and we will reassess that later today. 10/03/17 10:25 Continues to progress with therapy. Hemoglobin stable. Pain is improved. 10/05/17 11:05 Medically she seems stable. Pain is controlled. - Interventions to Obtain Goals PT Treatment Plan: Balance/Proprioception, Functional Activities, Gait Training , Patient/Family Education, Therapeutic Exercise OT Treatment Plan: ADL (Basic Care), Balance Training, Pt./Family Education, Ther. Exercise for ADL Goals Progress/Modifications: Anticipate safe transition to home environment today.
--- NOTE | 2017-10-05 13:14 | IRU Team Meeting ---
IRU Team Meeting - Nursing Bladder Assistive Devices Utilized:: Absorbent Pad Bladder Management Level of Assist: Modified Independent Bowel Assistive Devices Utilized:: Medication Bowel Management Level of Assist: Modified Independent Bowel Frequency of Accidents: No accidents Vital Signs: Vital Signs - 24 hr 10/04/17 16:00 10/04/17 22:17 10/05/17 08:00 Temperature 98.1 F 98.4 F 98.0 F Pulse Rate 90 77 67 Respiratory Rate 18 20 16 Blood Pressure 116/65 118/48 123/56 Pulse Oximetry 100 98 97 Current Medications: Acetaminophen (Tylenol Arthritis) 1,300 mg PO 05 [facility] Last Admin: 10/05/17 04:20 Dose: 1,300 mg Amlodipine Besylate (Norvasc) 10 mg PO DAILY [facility] Last Admin: 10/05/17 08:55 Dose: 10 mg Aspirin (Ecotrin) 81 mg PO BID [facility] Last Admin: 10/05/17 08:57 Dose: 81 mg Benazepril HCl (Lotensin) 20 mg PO DAILY [facility] Last Admin: 10/05/17 08:57 Dose: 20 mg Diphenhydramine HCl (Benadryl) 25 mg PO Q6H PRN PRN Reason: Itching Last Admin: 09/30/17 23:50 Dose: 25 mg Docusate Sodium (Colace) 100 mg PO BID [facility] Last Admin: 10/05/17 08:57 Dose: 100 mg Hydrochlorothiazide (Hydrodiuril) 25 mg PO WB [facility] Last Admin: 10/05/17 08:57 Dose: 25 mg Levothyroxine Sodium (Synthroid) 112 mcg PO ACB [facility] Last Admin: 10/05/17 05:32 Dose: Not Given Lorazepam (Ativan) 1 mg PO HS PRN PRN Reason: Sleep Last Admin: 10/04/17 21:53 Dose: 1 mg Omeprazole (Prilosec) 40 mg PO ACB [facility] Last Admin: 10/05/17 05:33 Dose: Not Given Polyethylene Glycol (Miralax) 17 gm PO DAILY PRN PRN Reason: Constipation Senna (Senna Lax) 17.2 mg PO DAILY PRN PRN Reason: Constipation Timolol Maleate (Timoptic 0.5% Eye Drops) 1 drops EACH EYE BID [facility] Last Admin: 10/05/17 08:57 Dose: 1 drops Tramadol HCl (Ultram) 50 - 100 mg PO Q6H PRN PRN Reason: Pain Last Admin: 10/03/17 10:38 Dose: 50 mg Current Medical Issues: Pain management, acute blood loss anemia, rheumatoid arthritis with osteoarthritis Comments: I certify that I personally led the interdisciplinary team meeting and agree with comments, barriers and goals indicated. Team meeting was held in the patient's room with the patient and the following family members present: patient's two daughters Michelles hemoglobin has remained stable at around 10 g percent. Her previously noted ecchymoses have improved as well. Pain management is going well with tramadol and Tylenol. Her appetite is good. - Physical Therapy Bed, Chair, Wheelchair Transfer Assist: Modified Independent Ambulation Ability: Modified Independent Ambulation Distance: 297 Wheelchair Propulsion Ability: Patient Unsafe/Unable Stair Climbing Ability: Stand By Assist/Supervision Number of Steps Climbed: 12 Car Transfer Ability: Stand By Assist/Supervision, 1 Person Assist Comments: Patient has met all physical therapy goals. She does have a bit of inconsistency at times but the family is able to assist as needed. Family training has also been undertaken. - Occupational Therapy Eating Ability: Independent Grooming Ability: Independent Bathing Ability: Modified Independent Upper Body Dressing Ability: Independent Lower Body Dressing Ability: Modified Independent Tub Transfer Assist: Modified Independent Toileting Assist: Modified Independent Toilet Transfer Assist: Modified Independent Comments: She is an extremely well with occupational therapy with her goals having been met. She has excellent family support. - Goals Physical Therapy Goals: 09/28/17 Goals: 1.) Modified Union with bed mobility and sit to stand transfers. - met. 2.) Ambulate 150 feet with modified independence. - met, 290 ft. 10/05/17 Goals: 1.) Discharge Planning Occupational Therapy Goals: OT goals 09/28/17, 10/05/17: 1.) Toileting with modified independence.- goal met. 2.) Simple meal preparation with supervision. - goal met. 3.) Discharge planning - Barriers to Discharge Barriers to Attaining Goals: Weakness (progressive resistance exercises are provided.), Endurance (encouragement to take fewer rest breaks and repetition of activities is provided.), Other (discharge planning) - Care Plan Anticipated Length of Stay (days): 1 Anticipated DC Destination: Home, Self Care, Home Health Service I have led this team conference and agree with the plan. Interventions/Goals: Patient has done well with therapy. She is medically stable. Arrangements are in progress for a safe transition to her home environment in the next 24 hours.
[2017-10-05] MEDS: LORazepam 1 MG TABLET PO PRN (21:37)
[2017-10-06] MEDS: OMEPRAZOLE 20 MG CAPSULE PO SCH (05:35)
[2017-10-06] MEDS: LEVOTHYROXINE 112 MCG TABLET PO SCH (05:35)
[2017-10-06] MEDS: ASPIRIN *EC* 81 MG TABLET PO SCH (08:26)
[2017-10-06] MEDS: AMLODIPINE 10 MG TABLET PO SCH (08:26)
[2017-10-06] MEDS: BENAZEPRIL 20 MG TABLET PO SCH (08:26)
[2017-10-06] MEDS: DOCUSATE SODIUM 100 MG CAPSULE PO SCH (08:26)
[2017-10-06] MEDS: TIMOLOL 0.5% EYE DROPS 5 ML EACH EYE SCH (08:27)
[2017-10-06 09:23] VITALS: BP 125/63; PULSE 69; RESP 18; TEMP 97.9; O2SAT 95
[2017-10-06] MEDS ORDERED: FALL RISK - PHARMACY CONSULT MC ONE (11:00)
--- NOTE | 2017-10-06 11:37 | IRU Progress Note ---
- Subjective/Serverity of Illness Date: 10/06/17 Ms. Pyle was reassessed in her room on inpatient rehabilitation. She says she is doing well. She states that her pain is adequately controlled. She is having bowel movements. She reports that she is eating well. She denies excessive fatigue, chest pain or shortness of breath. She feels good about going home today. Exam Vital Signs: Temperature 97.9 F 10/06/17 08:00 Pulse Rate 69 10/06/17 08:00 Respiratory Rate 18 10/06/17 08:00 Blood Pressure 125/63 10/06/17 08:00 Pulse Oximetry 95 10/06/17 08:00 Height/Weight/BMI: Height 1.52 m Weight 79.6 kg Body Mass Index 35.5 - Constitutional Present: no acute distress, well nourished, well developed, cooperative - Routine Neck Exam Present: supple - Routine Respiratory Exam Present: CTA bilaterally. Absent: wheezes - Routine Cardiovascular Exam Present: RRR, S1, S2. Absent: murmur - Routine Abdominal Exam Present: soft, normoactive bowel sounds, non distended. Absent: tenderness - Routine Extremities Exam Present: no edema - Routine Skin Exam Present: dry, warm - Routine Neurological Exam Present: alert, oriented X3, CN II-XII intact. Absent: motor deficit - Routine Psychiatric Exam Present: normal affect, normal thought process, cooperative, good insight, good judgment IRU A/P (1) Status post total hip replacement, right Current visit: Yes Status: Acute Patient has done well with therapy and is medically stable for dismissal to home today. (2) Acute blood loss anemia Current visit: Yes Status: Acute (3) Hypertension Qualifiers: Hypertension type: essential hypertension Qualified Code(s): I10 - Essential (primary) hypertension Current visit: No Status: Acute (4) Rheumatoid arthritis Qualifiers: Rheumatoid arthritis location: multiple sites Rheumatoid factor presence: unspecified presence Qualified Code(s): M06.9 - Rheumatoid arthritis, unspecified Current visit: No Status: Chronic DVT Prophylaxis: other (ASA BID) Resuscitation Status: Do Not Intubate - Course Hospital Course: Sammy Bob MD: 09/25/17 13:37 Patient is tolerating therapy reasonably well. On tramadol for pain which seems to help. A few loose stools. 09/26/17 11:45 Suddenly more pain in right hip today. Repeat films show no change and show a stable prosthesis. We will keep her on therapy for today and restart tomorrow gradually. Repeat hemoglobin stable at 10 g percent. 09/28/17 11:20 Pain management is difficult in view of her multiple medicinal allergies. Ecchymosis present right lateral hip, unchanged in slowly resolving. She is tolerating therapy well and cooperative. 09/29/17 11:46 Patient feels stronger today. She is cooperative with therapy 10/02/17 10:41 Pain management improved she states. Ecchymoses improved. Hemoglobin stable. Some erythema around the wound and we will reassess that later today. 10/03/17 10:25 Continues to progress with therapy. Hemoglobin stable. Pain is improved. 10/05/17 11:05 Medically she seems stable. Pain is controlled. 10/06/17 11:38 Anticipate safe transition to her home today. - Interventions to Obtain Goals PT Treatment Plan: Balance/Proprioception, Functional Activities, Gait Training , Patient/Family Education, Therapeutic Exercise OT Treatment Plan: ADL (Basic Care), Balance Training, Pt./Family Education, Ther. Exercise for ADL
--- NOTE | 2017-10-06 11:40 | Discharge Summary ---
Discharge Information Date of admission: 09/22/17 13:20 Anticipated date of discharge: 10/06/17 Attending Physician: Sammy Bob MD Primary care physician: Geraldine Narvaez DO Consults: 09/22/17 17:42 Physician Consult [CONS] Routine Consulting Provider: Jose Alberto Forde Reason For Exam: Medical management Ordering Provider has Notified [employer]: No 09/26/17 11:39 Physician Consult [CONS] Routine Consulting Provider: Yang Bridges Reason For Exam: hip follow up Ordering Provider has Notified [employer] Business Development: Yes - Discharge Diagnosis (1) Status post total hip replacement, right Status: Acute (2) Acute blood loss anemia Status: Acute (3) Hypertension Status: Acute (4) Rheumatoid arthritis Status: Chronic 1. Status post right total hip arthroplasty, elective 2. Acute blood loss anemia 3. Benign essential hypertension 4. Rheumatoid arthritis with increasing hand pain - Laboratory Labs: 10/02/17 04:52 10/02/17 04:52 History of Present Illness HPI: Ms. Pyle has a long history of osteoarthritis and rheumatoid arthritis. She underwent an elective right hip arthroplasty by Dr. Yang Bridges on 09/19/2017. In the postoperative timeframe she did experience some acute blood loss anemia requiring transfusion of 2 units of packed red blood cells. In addition, she is off of her methotrexate in view of the surgery and as such has developed worsening pain in the hands and other joints. She was felt to be a good candidate for inpatient rehabilitation where she was transferred on 09/22/2017. Hospital Course This is a general summary of the patient's hospital course. For more details refer to the complete medical record. She was followed by Dr. Bob as well as the hospitalist service while on acute inpatient rehabilitation. Hemoglobin remained stable on 3 measurements at 10.9, 10.8 and 10.5 the most recent of which was on 10/02/2017. She did have quite a bit of ecchymoses involving the right lateral thigh but this did resolve. Pain management was somewhat difficult in view of her allergies to narcotics. She was able to tolerate tramadol as well as Tylenol and at the conclusion of therapy had good control of her pain. She developed worsening acute pain in the right hip on 09/26/2017. This resulted in evaluation by the orthopedic service as well as a repeat hip and pelvic x-ray demonstrating good placement of the prosthesis. No other changes were made and the hip pain did improve dramatically. The following levels of functional competence are to be considered preliminary information. The reader is encouraged to refer to actual therapy notes and reports for specific details. For occupational therapy she was independent for eating and grooming and modified independent level for upper body dressing. She was modified independent for bathing and lower body dressing. Per physical therapy she was modified independent for bed/chair/wheelchair transfers, standby assist for car transfers and modified independent for ambulating over 200 feet with a front-wheeled walker. She was felt to be stable on her feet at this time. Patient requires a front-wheeled walker in view of the recent hip replacement surgery with an estimated length of need about 3 months. She will follow-up with Dr. Bridges is an outpatient and she was specifically advised to remain off of the methotrexate until he sees her in follow-up. She will also follow-up with Dr. Geraldine Narvaez, her primary care provider. Hospital course: 09/23/17 Agree with orders per attending. Hemoglobin remained stable following blood transfusion, currently at 10.9. Chemistry panel is stable. Blood pressure is under good control on current regimen which includes Norvasc, benazepril and hydrochlorothiazide. Continue with bowel regimen. VTE prophylaxis: ASA BID. 09/25/17 Change Senna and MiraLAX to PRN rather than scheduled d/t pt report of frequent loose stools. 09/29/17 Labs reviewed: Hgb stable at 10.8; BMP unremarkable. Encouraged use of IS -- crackles noted on today's exam. Medically stable. 10/02/17 Pain is controlled. Labs reviewed and are stable. Crackles in lungs may be rate related to "rheumatoid lung," as her weight is down and she is having no cough or dyspnea. Will follow. Reviewed rehabilitation notes, vital signs and nurse's notes. Time spent with patient: greater than 35 minutes Resuscitation Status: Do Not Intubate Discharge Plan - Med Rec/Dispo Referrals/Follow Up: Yang Bridges MD [Physician] - (Dr. Magi Bridges on 10/11/17 at 9:15 am for Post-Op follow-up. [facility] [address] [place] [address] [place] [address] ) Geraldine Narvaez DO [Family Provider] - (Dr. Alissa Narvaez on 10/12/17 at 2:00 pm for Hosp. follow-up. [address] [place] [address]) Richardson Instructions: Total Hip Replacement (DC) Prescriptions: Continue hydroCHLOROthiazide [Hydrochlorothiazide] 25 mg PO DAILY #0 Omeprazole 40 mg PO DAILY #0 Levothyroxine Sodium 112 mcg PO ACB #0 Timolol Maleate/Pf [Timoptic 0.5% Ocudose Drop] 1 drop BOTH EYES BID #0 Benazepril [Lotensin] 20 mg PO DAILY Cholecalciferol (Vitamin D3) [Vitamin D3] 2,000 unit PO DAILY cycloSPORINE [Restasis Multidose] 1 drops EACH EYE BID Folic Acid [Folate] 2 mg PO BID Glucosamine/MSM/Chondroitin A [Triple Flex Caplet] 2 each PO DAILY Magnesium Oxide [Magnesium] 400 mg PO DAILY Multivit/Folic Acid/Vit K1 [One-A-Day Women's 50 Plus Tab] 1 tab PO DAILY [place]-3 Fatty Acids [[place]-3] 2,000 mg PO DAILY Diclofenac [Voltaren] 2 gm TP QID PRN PRN Reason: Pain Aspirin *EC* [Ecotrin] 81 mg PO BID tab Docusate Sodium [Colace] 100 mg PO BID cap LORazepam [Ativan] 1 mg PO HS PRN tab PRN Reason: Sleep PEG 3350 17gm PACKET [Miralax] 17 gm PO DAILY packet Tramadol [Ultram] 50 mg PO Q6HR PRN #40 tab PRN Reason: Pain Calcium Carbonate/Vitamin D3 [Calcium 600-Vit D3 200 Tablet] 2 tab PO DAILY # 0 Amlodipine Besylate [Norvasc] 10 mg PO DAILY Acetaminophen [Tylenol] 650 mg PO QID tab DiphenhydrAMINE [Benadryl] 25 mg PO Q6H PRN cap PRN Reason: Itching Sennosides [Senna Lax] 17.2 mg PO DAILY PRN tab PRN Reason: Constipation ergocalciferol (vitamin D2) 50,000 unit capsule 50,000 unit PO DAILY #2 cap Discontinued METHOTREXATE 2.5mg TAB [Methotrexate] 6 tab PO WEEKLY No Action Sennosides [Senna Lax] 17.2 mg PO HS tab Tramadol [Ultram] 50 - 100 mg PO Q6H PRN tab PRN Reason: Pain Acetaminophen [Tylenol] 1,000 mg PO Q4-6HPRN PRN PRN Reason: Pain - Disposition 01 Discharged Home, Self-Care - Dismissal Complete Discharge Instructions are:: Complete
--- NOTE | 2017-10-06 11:51 | Letter to Referring Physician ---
Dear Dr. Narvaez, This is a brief note to bring you up-to-date on the status of Kassandra Pyle and her stay on the acute inpatient rehabilitation unit at [facility]. As you are likely aware, this patient was admitted to [facility] on for elective right total hip arthroplasty by Dr. Yang Bridges. The patient was stabilized while on the acute level and admitted to inpatient rehabilitation unit at [facility] on September 22, 2017. While on inpatient rehabilitation, this patient was seen by occupational therapy and physical therapy and improved overall in their functional ability. We also monitored and managed the patient's acute blood loss anemia while on Acute Rehab. Her hemoglobin remained stable around 10.5 g percent. Please see a copy of the history and physical examination as well as discharge summary faxed separately for further details. She has reduced her intake of tramadol over the past several days. However it did give her a prescription for tramadol 50 mg #40 tablets without refills. I encouraged her to try to use Tylenol if at all possible. At the time dismissal she is felt to be very stable and is able to ambulate with a front-wheeled walker with full weightbearing as tolerated. Please note that she was instructed to remain off methotrexate completely until she is seen by Dr. Bridges in follow-up. Thank you for allowing us to be involved in this nice patient's care. Please contact me directly should you have any questions regarding their stay on the inpatient rehabilitation unit. Sincerely, Sammy Bob M.D.
== END 2017-10-06 14:30 | disposition home health service (06) | DRG 561 ==
PROVIDERS: ADMIT Internal Medicine; ATTEND Internal Medicine